=== PATIENT | female | born 1945 | race Caucasian/White ===

== ENCOUNTER 2016-09-15 08:28 | Emergency (ER) | payer MEDICARE, BC ==
--- NOTE | 2016-09-15 08:40 | EDM.PDOC ---
ED HPI GENERAL MEDICAL PROBLEM - General Chief Complaint: Abdominal Pain Stated Complaint: STOMACH ISSUES, [id number] Time Seen by Provider: 09/15/16 08:40 Source of Information: Reports: Patient History Limitations: Reports: No Limitations - History of Present Illness INITIAL COMMENTS - FREE TEXT/NARRATIVE: Yesterday developed crampy abdominal pain. Subsequently had diarrhea. Then last evening developed n/v. This am able to drink fluids. No n/v. Stomach still crampy somewhat. Watery stool today with "streaks of blood". No recent travel, no recent antibiotic use. Did not eat out recently. No one else at home ill. Pt had diverticulitis several years ago, feels similar? Had chills with symptoms yesterday. - Related Data Allergies Allergy/AdvReac Type Severity Reaction Status Date / Time No Known Allergies Allergy Verified 09/15/16 08:42 Home Meds: Home Meds Alendronate [Fosamax] 1 tab PO WEEKLY 09/15/16 [History] Aspirin [Halfprin] 81 mg PO DAILY 09/15/16 [History] Atenolol 50 mg PO DAILY 09/15/16 [History] Benazepril HCl [Lotensin] 40 mg PO DAILY 09/15/16 [History] Pravastatin [Pravachol] 80 mg PO DAILY 09/15/16 [History] cloNIDine [Catapres] 0.1 mg PO BID 09/15/16 [History] Past Medical History - Past Surgical History GI Surgical History: Reports: Other (See Below) (Cholecystectomy, hysterectomy. colonoscopy several years ago as screening measure and reports negative.) Social & Family History - Family History Family Medical History: Noncontributory ED ROS GENERAL - Review of Systems Review Of Systems: See Below Constitutional: Reports: Other (felt chilled with n/v last pm) HEENT: Reports: No Symptoms Respiratory: Reports: No Symptoms Cardiovascular: Reports: No Symptoms Endocrine: Reports: No Symptoms GI/Abdominal: Reports: Diarrhea, Vomiting, Other (crampy abd pain since yesterday. watery diarrhea with "streaks of blood" today.) : Reports: No Symptoms Musculoskeletal: Reports: No Symptoms Skin: Reports: No Symptoms Neurological: Reports: No Symptoms Psychiatric: Reports: No Symptoms Hematologic/Lymphatic: Reports: No Symptoms Immunologic: Reports: No Symptoms ED EXAM, DIZZINESS - Physical Exam Exam: See Below Exam Limited By: No Limitations General Appearance: Alert Ears: Normal External Exam, Normal Canal, Normal TMs Nose: Normal Inspection, Normal Mucosa Throat/Mouth: Normal Inspection, Normal Lips, Normal Teeth, Normal Gums, Normal Oropharynx, Normal Voice, No Airway Compromise Head Exam: Atraumatic, Normocephalic Neck: Normal Inspection, Supple, Non-Tender Respiratory/Chest: No Respiratory Distress, Lungs Clear, Normal Breath Sounds Cardiovascular: Normal Peripheral Pulses, Regular Rate, Rhythm GI/Abdominal: Normal Bowel Sounds, Soft, Non-Tender, No Distention Neurological: Alert, Normal Mood/Affect, CN II-XII Intact Back Exam: Normal Inspection Extremities: Normal Inspection, Normal Range of Motion Psychiatric: Normal Affect, Normal Mood Skin Exam: Warm, Dry, Intact, Normal Color, No Rash Course - Vital Signs Text/Narrative:: Suspect viral illness based on labs with lymphocytes. No elevation wbc and no left shift. Advise symptomatic care. Start with clear liquid diet, adv as tolerated. If persistant discomfort, blood in stool may need ct abd/colonoscopy ? Blood in urine, suspect contaminant? Continue with advise for abd pain and/ or blood per rectum. Last Recorded V/S: Last Vital Signs Temp 36.1 C 09/15/16 08:59 Pulse 57 L 09/15/16 08:59 Resp 18 09/15/16 08:59 BP 185/102 H 09/15/16 08:59 Pulse Ox 99 09/15/16 08:59 - Orders/Labs/Meds Orders: Active Orders 24 hr Category Date Time Status URINALYSIS W/MICROSCOPIC [UA W/MICROSCOPIC] [URIN] Stat Lab 09/15/16 09:05 Results Labs: Laboratory Tests 09/15/16 09/15/16 09/15/16 Range/Units 08:54 08:54 09:05 WBC 8.3 (5.0-10.0) 10^3/uL RBC 4.94 (4.2-5.4) 10^6/uL Hgb 14.0 (12.0-16.0) g/dL Hct 43.0 (37.0-47.0) % MCV 87.0 (80-100) fL MCH 28.3 (27.0-34.0) pg MCHC 32.6 L (33.0-35.0) g/dL Plt Count 244 (150-450) 10^3/uL Neut % (Auto) 68.6 (42.2-75.2) % Lymph % (Auto) 20.0 L (20.5-50.1) % [place] % (Auto) 9.3 H (2-8) % Eos % (Auto) 1.9 (1.0-3.0) % Baso % (Auto) 0.2 (0.0-1.0) % Sodium 136 (135-145) mmol/L Potassium 3.9 (3.6-5.0) mmol/L Chloride 103 (101-111) mmol/L Carbon Dioxide 25.0 (21.0-31.0) mmol/L Anion Gap 11.9 BUN 26 H (7-18) mg/dL Creatinine 1.1 (0.6-1.3) mg/dL Est Cr Clr Drug Dosing 35.91 mL/min Estimated GFR (MDRD) 49 BUN/Creatinine Ratio 23.63 Glucose 110 H (74-105) mg/dL Calcium 8.7 (8.4-10.2) mg/dl Total Bilirubin 1.0 (0.2-1.0) mg/dL AST 28 (10-42) IU/L ALT 21 (10-60) IU/L Alkaline Phosphatase 41 L (42-121) IU/L Total Protein 7.4 (6.7-8.2) g/dl Albumin 4.2 (3.2-5.5) g/dl Globulin 3.2 Albumin/Globulin Ratio 1.31 Amylase 79 (28-100) U/L Lipase 58 H (22-51) U/L Urine Color Yellow (YELLOW) Urine Appearance Clear (CLEAR) Urine pH 7.0 (5.0-9.0) Ur Specific [place] 1.015 (1.005-1.030) Urine Protein 100 H (NEGATIVE) Urine Glucose (UA) Negative (NEGATIVE) Urine Ketones Negative (NEGATIVE) Urine Occult Blood Moderate H (NEGATIVE) Urine Nitrite Negative (NEGATIVE) Urine Bilirubin Small H (NEGATIVE) Urine Urobilinogen 0.2 (0.2-1.0) mg/dL Ur Leukocyte Esterase Negative (NEGATIVE) Meds: Medications Discontinued Medications Generic Name Dose Route Start Last Admin Trade Name Freq PRN Reason Stop Dose Admin Sodium Chloride 1,000 mls @ 999 mls/hr 09/15/16 08:48 09/15/16 09:15 Normal Saline IV 09/15/16 09:48 999 mls/hr .BOLUS ONE Administration Departure - Departure Time of Disposition: 10:12 Disposition: Home, Self-Care 01 Condition: good Clinical Impression: Abdominal pain, Diarrhea, Nausea & vomiting, Gastroenteritis, Gastroenteritis - Discharge Information Instructions: Viral Gastroenteritis, Adult, [id number] Additional Instructions: Suspect viral etiology. Start with clear liquid diet, advance as tolerated. If persistant abdominal pain you may need further diagnostics such as CT of the abdomen. Return to the ER if progressive/persistant abdominal pain either return to the ER or see your provider. If persistant blood per rectum you may need a colonoscopy. Discuss with your provider if persists. - My Orders Last 24 Hours: My Active Orders 09/15/16 09:05 URINALYSIS W/MICROSCOPIC [UA W/MICROSCOPIC] [URIN] Stat - Assessment/Plan Last 24 Hours: My Active Orders 09/15/16 09:05 URINALYSIS W/MICROSCOPIC [UA W/MICROSCOPIC] [URIN] Stat
[2016-09-15] MEDS ORDERED: Sodium Chloride 0.9% 1,000 ML IV ONE (08:48)
[2016-09-15 09:03] VITALS: BP 185/102
== END 2016-09-15 10:18 | disposition home or self-care (01) ==
LOC: DL.ED 08:28
DX: K52.9 Noninfective gastroenteritis and colitis, unspecified (principal); Z79.82 Long term (current) use of aspirin; Z79.899 Other long term (current) drug therapy; Z90.49 Acquired absence of other specified parts of digestive tract
CPT/HCPCS: 36415; 80053; 81001; 82150; 83690; 85025; 96360; 99284; J7030; 99283

== ENCOUNTER 2017-09-02 08:17 | Day surgery (SDC) | payer MEDICARE, BC ==
[~2017-09-02 08:17] MED LIST: Midazolam 1 MG/ML 2 ML SDV ONE; fentaNYL 100 MCG/2 ML SDV ONE
[2017-09-02] MEDS ORDERED: fentaNYL 100 MCG/2 ML SDV IV ONE ×2 (08:18→09:13)
[2017-09-02] MEDS ORDERED: Midazolam 1 MG/ML 2 ML SDV IV ONE ×3 (08:18→09:14)
[2017-09-02] MEDS ORDERED: Lactated Ringers 1,000 ML IV SCH (09:00)
[2017-09-02 11:38] VITALS: BP 152/82
--- NOTE | 2017-09-02 16:08 | OR ---
DATE: 09/02/2017 PREOPERATIVE DIAGNOSIS: Screening colonoscopy. POSTOPERATIVE DIAGNOSIS: Screening colonoscopy. PROCEDURE: Total colonoscopy. ANESTHESIA: Conscious sedation with IV Versed and fentanyl. SPECIMEN: None. OPERATIVE FINDINGS: Moderate sigmoid diverticulosis, otherwise normal. RECOMMENDATION: This patient is 72 years old, would only recommend further colonoscopy for symptoms and none for screening. INDICATION FOR PROCEDURE: This 72-year-old female has had a prior colonoscopy, but greater than 10 years ago. She is essentially here for screening. PROCEDURE: After adequate preparation, a colonoscope was inserted into the rectum. This was easily passed all the way to the cecum. Confirmation of the cecum was made by visualization of the ileocecal valve. The light shining through the right lower quadrant and by palpation. The bowel prep was very good. On withdrawal of the scope, a good examination of the colon was accomplished. The only abnormality noted was moderate sigmoid diverticulosis. The anal and rectal examination were normal. Air was suctioned from the colon, and the scope removed. [facility] /[id number]
== END 2017-09-02 11:05 | disposition home or self-care (01) ==
LOC: DL.ENDO 08:17
PROVIDERS: ATTEND Surgery
DX: Z12.11 Encounter for screening for malignant neoplasm of colon (principal); K57.30 Diverticulosis of large intestine without perforation or abscess without bleeding; I10 Essential (primary) hypertension; F41.9 Anxiety disorder, unspecified; Z79.82 Long term (current) use of aspirin; Z79.83 Long term (current) use of bisphosphonates; Z79.899 Other long term (current) drug therapy
CPT/HCPCS: G0121; J2250; J3010; J7120

== ENCOUNTER 2018-08-07 13:39 | Emergency (ER) | payer MEDICARE, BC ==
[2018-08-07 13:47] VITALS: BP 138/86
--- NOTE | 2018-08-07 14:06 | EDM.PDOC ---
ED HPI GENERAL MEDICAL PROBLEM - General Chief Complaint: General Stated Complaint: NECK SPASMS INTO JAW Time Seen by Provider: 08/07/18 13:55 Source of Information: Reports: Patient History Limitations: Reports: No Limitations - History of Present Illness INITIAL COMMENTS - FREE TEXT/NARRATIVE: This 73 yo female patient reports to the ED due to left sided shoulder and neck muscle spasms. The patient reports her symptoms started at about 1115 this morning. The patient reports she has a history of muscle spasms in different areas, but normally drinks some warm water and they go away. The patient reports her symptoms did not go away until she was on her way here to the ED. The patient reports she has been seen previously for these symptoms and has been low in salt as well as potassium in the past. Onset: Today Onset Date: 08/07/18 Onset Time: 11:15 Duration: Resolved Prior to Arrival Location: Reports: Neck, Upper Extremity, Left Quality: Reports: Ache Severity: Mild Improves with: Reports: None Worsens with: Reports: None Context: Reports: Other Associated Symptoms: Reports: No Other Symptoms - Related Data Allergies Allergy/AdvReac Type Severity Reaction Status Date / Time tramadol Allergy Itching Verified 08/07/18 13:47 Home Meds: Home Meds Alendronate [Fosamax] 70 mg PO WEEKLY 09/15/16 [History] Aspirin [Halfprin] 81 mg PO DAILY 09/15/16 [History] Atenolol 50 mg PO BID 09/15/16 [History] Benazepril HCl [Lotensin] 40 mg PO DAILY 09/15/16 [History] Pravastatin [Pravachol] 40 mg PO DAILY 09/15/16 [History] cloNIDine [Catapres] 0.1 mg PO TID 09/15/16 [History] Calcium Carbonate/Vitamin D3 [Caltrate 600 Plus D3 Tablet] 1 each PO DAILY 08/30 [History] Past Medical History HEENT History: Reports: Cataract, Other (See Below) Other HEENT History: left eye cataract. 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 Cardiovascular History: Reports: High Cholesterol, Hypertension, Other (See Below) Other Cardiovascular History: States mild heart attack couple years back Respiratory History: Reports: None Gastrointestinal History: Reports: Diverticulosis Other Gastrointestinal History: diverticulitis Genitourinary History: Reports: Renal Disease Other Genitourinary History: Has ultrasound on September 20 to examine kidneys, was told to discontinue Ibuprophen IMPORT/EXPORT CLERK History: Reports: None Musculoskeletal History: Reports: Arthritis, Osteoarthritis Other Musculoskeletal History: osteopenia Neurological History: Reports: None Psychiatric History: Reports: Depression Endocrine/Metabolic History: Reports: Vitamin D Deficiency Other Endocrine/Metabolic History: takes caltrate Hematologic History: Reports: None Immunologic History: Reports: None Oncologic (Cancer) History: Reports: None Dermatologic History: Reports: None - Infectious Disease History Infectious Disease History: Reports: Measles - Past Surgical History Head Surgeries/Procedures: Reports: None HEENT Surgical History: Reports: None Other HEENT Surgeries/Procedures: S/P PAROTID TUMOR EXCISION Cardiovascular Surgical History: Reports: None Other Cardiovascular Surgeries/Procedures: S/P NECK PAROTID TUMOR EXCISION GI Surgical History: Reports: Colonoscopy Female Surgical History: Reports: Hysterectomy, Other (See Below) Other Female Surgeries/Procedures: complete hysterectomy 1982 Musculoskeletal Surgical History: Reports: None Social & Family History - Family History Family Medical History: Noncontributory Cardiac: Reports: CAD, High Cholesterol, Hypertension Respiratory: Reports: Asthma Neurological: Reports: CVA Oncologic: Reports: Breast - Tobacco Use Smoking Status *Q: Never Smoker Second Hand Smoke Exposure: No - Caffeine Use Caffeine Use: Reports: Tea Other Caffeine Use: 4-5 cups of green tea daily - Recreational Drug Use Recreational Drug Use: No ED ROS GENERAL - Review of Systems Review Of Systems: ROS reveals no pertinent complaints other than HPI. ED EXAM, GENERAL - Physical Exam Exam: See Below Exam Limited By: No Limitations General Appearance: Alert, WD/WN, Mild Distress Eye Exam: Bilateral Eye: EOMI, Normal Inspection, PERRL Ears: Normal External Exam, Normal Canal, Hearing Grossly Normal, Normal TMs Nose: Normal Inspection, Normal Mucosa, No Blood Throat/Mouth: Normal Inspection, Normal Lips, Normal Teeth, Normal Gums, Normal Oropharynx, Normal Voice, No Airway Compromise Head: Atraumatic, Normocephalic Neck: Normal Inspection, Supple, Non-Tender, Full Range of Motion Respiratory/Chest: No Respiratory Distress, Lungs Clear, Normal Breath Sounds, No Accessory Muscle Use, Chest Non-Tender Cardiovascular: Normal Peripheral Pulses, Regular Rate, Rhythm, No Edema, No Gallop, No JVD, No Murmur, No Rub GI/Abdominal: Normal Bowel Sounds, Soft, Non-Tender, No Organomegaly, No Distention, No Abnormal Bruit, No Mass (Female) Exam: Deferred Rectal (Female) Exam: Deferred Back Exam: Normal Inspection, Full Range of Motion, NT Extremities: Normal Inspection, Normal Range of Motion, Non-Tender, Normal Capillary Refill, No Pedal Edema Neurological: Alert, Oriented, CN II-XII Intact, Normal Cognition, Normal Gait, Normal Reflexes, No Motor/Sensory Deficits Psychiatric: Normal Affect, Normal Mood Skin Exam: Warm, Dry, Intact, Normal Color, No Rash Lymphatic: No Adenopathy Course - Vital Signs Last Recorded V/S: Last Vital Signs Temp 36.9 C 08/07/18 13:44 Pulse 66 08/07/18 13:44 Resp 18 08/07/18 13:44 BP 138/86 08/07/18 13:44 Pulse Ox 97 08/07/18 13:44 - Orders/Labs/Meds Labs: Laboratory Tests 08/07/18 08/07/18 Range/Units 14:07 14:07 WBC 7.5 (5.0-10.0) 10^3/uL RBC 4.33 (4.2-5.4) 10^6/uL Hgb 12.9 (12.0-16.0) g/dL Hct 37.5 (37.0-47.0) % MCV 86.6 (80-100) fL MCH 29.8 (27.0-34.0) pg MCHC 34.4 (33.0-35.0) g/dL Plt Count 258 (150-450) 10^3/uL Neut % (Auto) 54.3 (42.2-75.2) % Lymph % (Auto) 32.5 (20.5-50.1) % [place] % (Auto) 10.4 H (2-8) % Eos % (Auto) 2.5 (1.0-3.0) % Baso % (Auto) 0.3 (0.0-1.0) % Add Manual Diff Yes Neutrophils % (Manual) 44 (42-75) % Lymphocytes % (Manual) 40 (20-50) % Monocytes % (Manual) 8 (2-8) % Eosinophils % (Manual) 2 (1-3) % Basophils % (Manual) 2 Metamyelocytes % 1 Myelocytes % 3 Sodium 124 L D (135-145) mmol/L Potassium 3.5 L (3.6-5.0) mmol/L Chloride 89 L D (101-111) mmol/L Carbon Dioxide 23.0 (21.0-31.0) mmol/L Anion Gap 15.5 BUN 19 H (7-18) mg/dL Creatinine 1.0 (0.6-1.3) mg/dL Est Cr Clr Drug Dosing 38.37 mL/min Estimated GFR (MDRD) 55 BUN/Creatinine Ratio 19.00 Glucose 95 (74-105) mg/dL Calcium 8.8 (8.4-10.2) mg/dl Total Bilirubin 0.8 (0.2-1.0) mg/dL AST 34 (10-42) IU/L ALT 27 (10-60) IU/L Alkaline Phosphatase 47 (42-121) IU/L Total Protein 7.0 (6.7-8.2) g/dl Albumin 3.7 (3.2-5.5) g/dl Globulin 3.3 Albumin/Globulin Ratio 1.12 Departure - Departure Time of Disposition: 14:42 Disposition: Home, Self-Care 01 Condition: Fair Clinical Impression: Muscle spasm - Discharge Information *PRESCRIPTION DRUG MONITORING PROGRAM REVIEWED*: Not Applicable *COPY OF PRESCRIPTION DRUG MONITORING REPORT IN PATIENT NELA: Not Applicable Instructions: Muscle Cramps and Spasms Forms: ED Department Discharge Care Plan Goals: The patient was advised of the examination and lab results during the visit. The patient was encouraged to drink a small sports drink when she feels her muscle spasms start. The patient was discharged with a script for Flexeril (5 mg ) #20 to take 1 by mouth every 8 hours as needed for muscle spasms. If the patient has any additional symptoms or concerns, the patient should either return to the emergency department or visit her primary care facility.
[2018-08-07 14:33] LABS: ANION GAP 15.5
== END 2018-08-07 14:52 | disposition home or self-care (01) ==
LOC: DL.ED 13:39
DX: M62.838 Other muscle spasm (principal); E78.00 Pure hypercholesterolemia, unspecified; I10 Essential (primary) hypertension; F32.9 Major depressive disorder, single episode, unspecified; Z88.5 Allergy status to narcotic agent; Z79.899 Other long term (current) drug therapy; Z79.82 Long term (current) use of aspirin
CPT/HCPCS: 36415; 80053; 85025; 99283

== ENCOUNTER 2020-11-07 04:27 | Inpatient (IN) | payer MEDICARE, BC ==
[2020-11-07] MEDS ORDERED: Ondansetron 4 MG/2 ML SDV IVPUSH ONE ×3 (04:39→17:54)
[2020-11-07 05:23] LABS: ANION GAP 19.5 mEq/L (7-13)
[2020-11-07] MEDS ORDERED: Metoclopramide 10 MG/2 ML SDV IVPUSH ONE (05:49)
--- NOTE | 2020-11-07 05:49 | EDM.PDOC ---
<Meche Mcdonald - Last Filed: 11/07/20 12:39> ED HPI GENERAL MEDICAL PROBLEM - General Chief Complaint: Gastrointestinal Problem Stated Complaint: AMBULANCE Time Seen by Provider: 11/07/20 05:06 - Related Data Allergies Allergy/AdvReac Type Severity Reaction Status Date / Time chlorthalidone AdvReac Lethargy Verified 11/07/20 15:40 hydralazine AdvReac Lightheaded Verified 11/07/20 15:40 ness minoxidil AdvReac Edema Verified 11/07/20 15:40 tramadol AdvReac Itching Verified 11/07/20 15:40 Home Meds: Home Meds Alendronate [Fosamax] 70 mg PO .Saturday09/15/16 [History] Aspirin [Halfprin] 81 mg PO DAILY 09/15/16 [History] Pravastatin [Pravachol] 40 mg PO DAILY 09/15/16 [History] atenoloL [Atenolol] 100 mg PO BID 09/15/16 [History] cloNIDine [Catapres] 0.3 mg PO TID 09/15/16 [History] Calcium Carbonate/Vitamin D3 [Caltrate 600 Plus D3 Tablet] 1 each PO DAILY 08/30/17 [History] Calcitriol 0.5 mg PO DAILY 11/07/20 [History] Gabapentin [Neurontin] 100 mg PO BID 11/07/20 [History] amLODIPine [Norvasc] 10 mg PO DAILY 11/07/20 [History] Isosorbide Mononitrate [Imdur] 120 mg PO ACBREAKFAST 30 Days #30 tab.er 11/09/20 [Rx] Ondansetron [Zofran ODT] 4 mg PO Q4H PRN 15 Days #15 tab.dis 11/09/20 [Rx] metroNIDAZOLE [Flagyl] 500 mg PO Q6H 7 Days #28 tab 11/09/20 [Rx] ED ROS GENERAL - Review of Systems Review Of Systems: Comprehensive ROS is negative, except as noted in HPI. ED EXAM, GI/ABD - Physical Exam Exam: See Below Course - Radiology Interpretation Free Text/Narrative:: [facility] [place] [facility] Final Radiology Report Call: [phone] assistance Online chat: [email or web address] Medical Name: ALEE FALCON Age: 75Years F Date: 11/07/2020 SSN: -- : [id number] Study: CT ABDOMEN PELVIS WO CONT Requesting Physician: ELDA ZHAO Images: [phone] Addl Studies: Provided Clinical History: abdominal pain Contrast: Without Contrast Medium: Contrast Amount: Contrast Method: Page 1 of 2 PROCEDURE INFORMATION: Exam: CT Abdomen And Pelvis Without Contrast Exam date and time: 11/07/2020 6:30 AM Age: 75 years old Clinical indication: Vomiting and other: Wbc 16,800; Additional info: Abdominal pain TECHNIQUE: Imaging protocol: Computed tomography of the abdomen and pelvis without contrast. Radiation optimization: All CT scans at this facility use at least one of these dose optimization techniques: automated exposure control; mA and/or kV adjustment per patient size (includes targeted exams where dose is matched to clinical indication); or iterative reconstruction. COMPARISON: No relevant prior exams. FINDINGS: Mediastinal space: Moderate sized hiatal hernia. Liver: Normal. No mass. Gallbladder and bile ducts: Absent gallbladder. Normal bile ducts. Pancreas: Normal. No ductal dilation. Spleen: Normal. No splenomegaly. Adrenal glands: Normal. No mass. Kidneys and ureters: Normal. No hydronephrosis. Stomach and bowel: Diffuse mucosal thickening of the colon. This finding extends from the hepatic flexure to the rectum. There are diverticula of the sigmoid. No associated inflammatory changes. The small intestine is unremarkable. No inflammatory change. No obstruction. Appendix: No evidence for appendicitis. Normal diameter. No inflammation. Intraperitoneal space: Unremarkable. No free air. No significant fluid collection. Vasculature: Unremarkable. No abdominal aortic aneurysm. Lymph nodes: Unremarkable. No enlarged lymph nodes. Urinary bladder: Unremarkable as visualized. Reproductive: Unremarkable as visualized. Bones/joints: Moderately severe degenerative changes of the right hip joint. [id number] degenerative changes of the left hip joint. No fractures. Soft tissues: Unremarkable. IMPRESSION: 1. Diffuse inflammatory changes of the colon. Findings may represent infectious colitis or inflammatory bowel disease. 2. Colonic diverticular disease without diverticulitis. Thank you for allowing us to participate in the care of your patient. Dictated and Authenticated by: Iam Richard MD 11/07/2020 7:39 AM Central Time ([place] & [place]) - Re-Assessments/Exams Free Text/Narrative Re-Assessment/Exam: 11/07/20 Care of patient assumed by sba underwriter at 0630 from [facility] [place] Patient's symptoms intractable to multiple doses of antiemetics, Bentyl and fluid replacement. CT abdomen/pelvis reveals diffuse inflammatory changes within the colon; patient attests to a history of IBS with more constipation than diarrhea. Case discussed with Dr. Perez who accepted patient for inpatient admission. Findings of examination, lab work, imaging, as well as conversation with Dr. Perez reviewed with patient. Patient verbalized understanding and agreement with the plan of care. Departure - Departure Time of Disposition: 09:51 Disposition: Admitted As Inpatient 67 Condition: Good Clinical Impression: Colitis, Hyponatremia Nausea and vomiting Qualifiers: Vomiting type: bilious vomiting Qualified Code(s): R11.14 - Bilious vomiting Diarrhea Qualifiers: Diarrhea type: presumed infectious Qualified Code(s): R19.7 - Diarrhea, unspecified - Discharge Information <Elda Zhao - Last Filed: 11/09/20 10:27> ED HPI GENERAL MEDICAL PROBLEM - General Source of Information: Reports: Patient, Family, RN History Limitations: Reports: No Limitations - History of Present Illness INITIAL COMMENTS - FREE TEXT/NARRATIVE: 75 year old female who presents to the clinic with complaints of nausea, vomiting, diarrhea and heartburn for over a day. [place] the night before symptoms began. She reports symptoms began after she drank beer. She has tried tums with no relief. Past Medical History HEENT History: Reports: Cataract, Other (See Below) Other HEENT History: left eye cataract. 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 Cardiovascular History: Reports: High Cholesterol, Hypertension, Other (See Below) Other Cardiovascular History: States mild heart attack couple years back Respiratory History: Reports: None Gastrointestinal History: Reports: Diverticulosis Other Gastrointestinal History: diverticulitis Genitourinary History: Reports: Renal Disease Other Genitourinary History: Has ultrasound on September 20 to examine kidneys, was told to discontinue Ibuprophen TILE PROFESSIONAL History: Reports: None Musculoskeletal History: Reports: Arthritis, Osteoarthritis Other Musculoskeletal History: osteopenia Neurological History: Reports: None Psychiatric History: Reports: Depression Endocrine/Metabolic History: Reports: Vitamin D Deficiency Other Endocrine/Metabolic History: takes caltrate Hematologic History: Reports: None Immunologic History: Reports: None Oncologic (Cancer) History: Reports: None Dermatologic History: Reports: None - Infectious Disease History Infectious Disease History: Reports: Measles - Past Surgical History Head Surgeries/Procedures: Reports: None HEENT Surgical History: Reports: None Other HEENT Surgeries/Procedures: S/P PAROTID TUMOR EXCISION Cardiovascular Surgical History: Reports: None Other Cardiovascular Surgeries/Procedures: S/P NECK PAROTID TUMOR EXCISION GI Surgical History: Reports: Colonoscopy Female Surgical History: Reports: Hysterectomy, Other (See Below) Other Female Surgeries/Procedures: complete hysterectomy 1982 Musculoskeletal Surgical History: Reports: None Social & Family History - Family History Family Medical History: No Pertinent Family History Cardiac: Reports: CAD, High Cholesterol, Hypertension Respiratory: Reports: Asthma Neurological: Reports: CVA Oncologic: Reports: Breast - Tobacco Use Tobacco Use Status *Q: Never Tobacco User - Caffeine Use Caffeine Use: Reports: Coffee, Tea Other Caffeine Use: 4-5 cups of green tea daily - Recreational Drug Use Recreational Drug Use: No ED ROS GENERAL - Review of Systems Review Of Systems: See Below ED EXAM, GI/ABD - Physical Exam Exam Limited By: No Limitations General Appearance: Alert, Moderate Distress Ears: Normal External Exam, Hearing Grossly Normal Throat/Mouth: No Airway Compromise Neck: Normal Inspection, Supple Respiratory/Chest: No Respiratory Distress, Lungs Clear Cardiovascular: Normal Peripheral Pulses, Regular Rate, Rhythm GI/Abdominal Exam: Soft, Non-Tender (Female) Exam: Deferred Rectal (Female) Exam: Deferred Extremities: Pedal Edema (1 + pitting to BLE) Neurological: Alert, Oriented Psychiatric: Anxious Skin Exam: Warm, Intact #1 Interpretation EKG Date: 11/07/20 Time: 04:54 Rhythm: Other (SR with short [place] interval) QRS: LBBB Course - Vital Signs Last Recorded V/S: Last Vital Signs Temp 96.4 F L 11/09/20 07:40 Pulse 80 11/09/20 09:02 Resp 22 H 11/09/20 07:40 BP 162/72 H 11/09/20 09:02 Pulse Ox 94 L 11/09/20 07:40 - Orders/Labs/Meds Orders: Medication Orders Acetaminophen (Acetaminophen 325 Mg Tab) 650 mg PO Q4H PRN PRN Reason: Pain (Mild 1-3)/fever Amlodipine Besylate (Amlodipine 5 Mg Tab) 10 mg PO DAILY ERICA Last Admin: 11/09/20 09:02 Dose: 10 mg Documented by: Admin: 11/08/20 09:07 Dose: 10 mg Documented by: KANWAL Aspirin (Aspirin 81 Mg Tab.Ec) 81 mg PO DAILY [facility] Last Admin: 11/09/20 09:02 Dose: 81 mg Documented by: Admin: 11/08/20 09:07 Dose: 81 mg Documented by: KANWAL Atenolol (Atenolol 50 Mg Tab) 100 mg PO BID [facility] Last Admin: 11/09/20 09:02 Dose: 100 mg Documented by: Admin: 11/08/20 20:08 Dose: 100 mg Documented by: Admin: 11/08/20 09:07 Dose: 100 mg Documented by: Admin: 11/07/20 22:59 Dose: Not Given Documented by: EVAN Calcitriol (Calcitriol 0.25 Mcg Cap) 0.5 mcg PO DAILY [facility] Admin: 11/09/20 09:01 Dose: 0.5 mcg Documented by: Admin: 11/08/20 09:06 Dose: 0.5 mcg Documented by: KANWAL Clonidine HCl (Clonidine 0.1 Mg Tab) 0.3 mg PO TID [facility] Admin: 11/09/20 09:01 Dose: 0.3 mg Documented by: Admin: 11/08/20 20:07 Dose: 0.3 mg Documented by: Admin: 11/08/20 15:22 Dose: 0.3 mg Documented by: Admin: 11/08/20 09:08 Dose: 0.3 mg Documented by: Admin: 11/07/20 22:58 Dose: Not Given Documented by: EVAN Gabapentin (Gabapentin 100 Mg Cap) 100 mg PO BID [facility] Last Admin: 11/09/20 09:01 Dose: 100 mg Documented by: Admin: 11/08/20 20:07 Dose: 100 mg Documented by: Admin: 11/08/20 09:06 Dose: 100 mg Documented by: Admin: 11/07/20 22:58 Dose: Not Given Documented by: EVAN Sodium Chloride (Normal Saline) 1,000 mls @ 75 mls/hr IV ASDIRECTED [facility] Last Admin: 11/08/20 22:37 Dose: 75 mls/hr Documented by: Infusion: 11/08/20 22:33 Dose: 75 mls/hr Documented by: Admin: 11/08/20 05:29 Dose: 75 mls/hr Documented by: Infusion: 11/08/20 00:50 Dose: 75 mls/hr Documented by: Admin: 11/07/20 11:30 Dose: 75 mls/hr Documented by: KANWAL Metronidazole 500 mg/ Premix 100 mls @ 100 mls/hr IV Q6HR [facility] Last Infusion: 11/09/20 06:22 Dose: 100 mls/hr Documented by: Admin: 11/09/20 05:03 Dose: 100 mls/hr Documented by: Infusion: 11/09/20 00:39 Dose: 100 mls/hr Documented by: Admin: 11/08/20 23:29 Dose: 100 mls/hr Documented by: Infusion: 11/08/20 18:45 Dose: 100 mls/hr Documented by: Admin: 11/08/20 17:45 Dose: 100 mls/hr Documented by: Infusion: 11/08/20 13:11 Dose: 100 mls/hr Documented by: [id number] Admin: 11/08/20 12:11 Dose: 100 mls/hr Documented by: [id number] Infusion: 11/08/20 06:30 Dose: 100 mls/hr Documented by: Admin: 11/08/20 05:28 Dose: 100 mls/hr Documented by: Infusion: 11/08/20 00:57 Dose: 100 mls/hr Documented by: Admin: 11/07/20 23:52 Dose: 100 mls/hr Documented by: Infusion: 11/07/20 19:14 Dose: 100 mls/hr Documented by: Admin: 11/07/20 18:14 Dose: 100 mls/hr Documented by: [id number] Infusion: 11/07/20 12:30 Dose: 100 mls/hr Documented by: [id number] Admin: 11/07/20 11:30 Dose: 100 mls/hr Documented by: KANWAL Isosorbide Mononitrate (Isosorbide Mononitrate 60 Mg Tab.Er) 120 mg PO ACBREAKFAST [facility] Last Admin: 11/09/20 05:05 Dose: 120 mg Documented by: SPIKE Metoclopramide HCl (Metoclopramide 10 Mg/2 Ml Sdv) 10 mg IVPUSH Q6H PRN PRN Reason: Nausea/Vomiting Last Admin: 11/07/20 23:46 Dose: 10 mg Documented by: Admin: 11/07/20 16:33 Dose: 10 mg Documented by: KANWAL Non-Formulary Medication (Alendronate [Fosamax]) 70 mg PO .SATURDAY [facility] Ondansetron HCl (Ondansetron 4 Mg/2 Ml Sdv) 4 mg IVPUSH Q4H PRN PRN Reason: Nausea/Vomiting Last Admin: 11/08/20 05:27 Dose: 4 mg Documented by: Admin: 11/07/20 11:16 Dose: 4 mg Documented by: KANWAL Pravastatin Sodium (Pravastatin 20 Mg Tab) 40 mg PO BEDTIME [facility] Last Admin: 11/08/20 20:08 Dose: 40 mg Documented by: Admin: 11/07/20 22:59 Dose: Not Given Documented by: EVAN Promethazine HCl (Promethazine 25 Mg/Ml Sdv) 25 mg IM Q4H PRN PRN Reason: nausea and vomitting Last Admin: 11/07/20 13:15 Dose: 25 mg Documented by: KANWAL Sodium Chloride (Sodium Chloride 0.9% 10 Ml Syringe) 10 ml FLUSH ASDIRECTED PRN PRN Reason: Keep Vein Open Labs: Laboratory Tests 11/07/20 11/07/20 11/07/20 Range/Units 04:53 04:53 04:53 WBC 16.8 H (5.0-10.0) 10^3/uL RBC 5.38 (4.2-5.4) 10^6/uL Hgb 15.3 D (12.0-16.0) g/dL Hct 44.7 (37.0-47.0) % MCV 83.1 D (80-100) fL MCH 28.4 (27.0-34.0) pg MCHC 34.2 (33.0-35.0) g/dL Plt Count 354 D (150-450) 10^3/uL Neut % (Auto) 75.4 H (42.2-75.2) % Lymph % (Auto) 14.7 L (20.5-50.1) % Bl[place] % (Auto) 9.3 H (2-8) % Eos % (Auto) 0.4 L (1.0-3.0) % Baso % (Auto) 0.2 (0.0-1.0) % Add Manual Diff Yes Neutrophils % (Manual) 81 H (42-75) % Band Neutrophils % 1 % Lymphocytes % (Manual) 12 L (20-50) % Monocytes % (Manual) 6 (2-8) % Sodium 132 L (136-145) mmol/L Potassium 3.5 (3.5-5.1) mmol/L Chloride 92 L (98-107) mmol/L Carbon Dioxide 24 (21-32) mmol/L Anion Gap 19.5 H (7-13) mEq/L BUN 28 H (7-18) mg/dL Creatinine 1.40 H (0.55-1.02) mg/dL Est Cr Clr Drug Dosing 26.60 mL/min Estimated GFR (MDRD) 37 BUN/Creatinine Ratio 20.0 (No establ ref range) Glucose 139 H (70-99) mg/dL Calcium 8.9 (8.5-10.1) mg/dL Magnesium 1.7 L (1.8-2.4) mg/dL Total Bilirubin 0.7 (0.2-1.0) mg/dL AST 26 (15-37) U/L ALT 35 (14-59) U/L Alkaline Phosphatase 65 (46-116) U/L Troponin I High Sens 9 (<=51) pg/mL B-Natriuretic Peptide 63 (0-100) pg/ml Total Protein 8.0 (6.4-8.2) g/dL Albumin 4.0 (3.4-5.0) g/dL Globulin 4.0 Albumin/Globulin Ratio 1.0 Amylase 98 (25-115) U/L Lipase 272 (73-393) U/L Urine Color (YELLOW) Urine Appearance (CLEAR) Urine pH (5.0-9.0) Ur Specific [place] (1.005-1.030) Urine Protein (NEGATIVE) Urine Glucose (UA) (NEGATIVE) Urine Ketones (NEGATIVE) Urine Occult Blood (NEGATIVE) Urine Nitrite (NEGATIVE) Urine Bilirubin (NEGATIVE) Urine Urobilinogen (0.2-1.0) mg/dL Ur Leukocyte Esterase (NEGATIVE) Urine RBC /HPF Urine WBC (0-5/HPF) /HPF Ur Epithelial Cells (NOT SEEN) /HPF Amorphous Sediment (NOT SEEN) /HPF Urine Bacteria (0-FEW/HPF) /HPF Urine Mucus (NOT SEEN) /LPF 11/07/20 Range/Units 07:08 WBC (5.0-10.0) 10^3/uL RBC (4.2-5.4) 10^6/uL Hgb (12.0-16.0) g/dL Hct (37.0-47.0) % MCV (80-100) fL MCH (27.0-34.0) pg MCHC (33.0-35.0) g/dL Plt Count (150-450) 10^3/uL Neut % (Auto) (42.2-75.2) % Lymph % (Auto) (20.5-50.1) % Blount % (Auto) (2-8) % Eos % (Auto) (1.0-3.0) % Baso % (Auto) (0.0-1.0) % Add Manual Diff Neutrophils % (Manual) (42-75) % Band Neutrophils % % Lymphocytes % (Manual) (20-50) % Monocytes % (Manual) (2-8) % Sodium (136-145) mmol/L Potassium (3.5-5.1) mmol/L Chloride (98-107) mmol/L Carbon Dioxide (21-32) mmol/L Anion Gap (7-13) mEq/L BUN (7-18) mg/dL Creatinine (0.55-1.02) mg/dL Est Cr Clr Drug Dosing mL/min Estimated GFR (MDRD) BUN/Creatinine Ratio (No establ ref range) Glucose (70-99) mg/dL Calcium (8.5-10.1) mg/dL Magnesium (1.8-2.4) mg/dL Total Bilirubin (0.2-1.0) mg/dL AST (15-37) U/L ALT (14-59) U/L Alkaline Phosphatase (46-116) U/L Troponin I High Sens (<=51) pg/mL B-Natriuretic Peptide (0-100) pg/ml Total Protein (6.4-8.2) g/dL Albumin (3.4-5.0) g/dL Globulin Albumin/Globulin Ratio Amylase (25-115) U/L Lipase (73-393) U/L Urine Color Yellow (YELLOW) Urine Appearance Clear (CLEAR) Urine pH 6.0 (5.0-9.0) Ur Specific [place] >= 1.030 (1.005-1.030) Urine Protein 100 H (NEGATIVE) Urine Glucose (UA) Negative (NEGATIVE) Urine Ketones Negative (NEGATIVE) Urine Occult Blood Moderate H (NEGATIVE) Urine Nitrite Negative (NEGATIVE) Urine Bilirubin Negative (NEGATIVE) Urine Urobilinogen 0.2 (0.2-1.0) mg/dL Ur Leukocyte Esterase Negative (NEGATIVE) Urine RBC 10-20 H /HPF Urine WBC 0-5 (0-5/HPF) /HPF Ur Epithelial Cells Few (NOT SEEN) /HPF Amorphous Sediment Few (NOT SEEN) /HPF Urine Bacteria Few (0-FEW/HPF) /HPF Urine Mucus Few H (NOT SEEN) /LPF Meds: Medications Generic Name Dose Route Start Last Admin Trade Name Freq PRN Reason Stop Dose Admin Acetaminophen 650 mg 11/07/20 10:59 Acetaminophen 325 Mg Tab PO Q4H PRN Pain (Mild 1-3)/fever Amlodipine Besylate 10 mg 11/08/20 09:00 11/09/20 09:02 Amlodipine 5 Mg Tab PO 10 mg DAILY ERICA Administration Aspirin 81 mg 11/08/20 09:00 11/09/20 09:02 Aspirin 81 Mg Tab.Ec PO 81 mg DAILY ERICA Administration Atenolol 100 mg 11/07/20 21:00 11/09/20 09:02 Atenolol 50 Mg Tab PO 100 mg BID ERICA Administration Calcitriol 0.5 mcg 11/08/20 09:00 11/09/20 09:01 Calcitriol 0.25 Mcg Cap PO 0.5 mcg DAILY ERICA Administration Clonidine HCl 0.3 mg 11/07/20 21:00 11/09/20 09:01 Clonidine 0.1 Mg Tab PO 0.3 mg TID ERICA Administration Gabapentin 100 mg 11/07/20 21:00 11/09/20 09:01 Gabapentin 100 Mg Cap PO 100 mg BID ERICA Administration Sodium Chloride 1,000 mls @ 75 mls/hr 11/07/20 11:00 11/08/20 22:37 Normal Saline IV 75 mls/hr ASDIRECTED ERICA Administration Metronidazole 500 mg/ Premix 100 mls @ 100 mls/hr 11/07/20 12:00 11/09/20 06:22 IV Infused Q6HR ERICA Infusion Isosorbide Mononitrate 120 mg 11/09/20 06:00 11/09/20 05:05 Isosorbide Mononitrate 60 Mg Tab.Er PO 120 mg ACBREAKFAST ERICA Administration Metoclopramide HCl 10 mg 11/07/20 16:09 11/07/20 23:46 Metoclopramide 10 Mg/2 Ml Sdv IVPUSH 10 mg Q6H PRN Administration Nausea/Vomiting Non-Formulary Medication 70 mg 11/07/20 15:15 Alendronate [Fosamax] PO .SATURDAY [facility] Ondansetron HCl 4 mg 11/07/20 12:30 11/08/20 05:27 Ondansetron 4 Mg/2 Ml Sdv IVPUSH 4 mg Q4H PRN Administration Nausea/Vomiting Pravastatin Sodium 40 mg 11/07/20 21:00 11/08/20 20:08 Pravastatin 20 Mg Tab PO 40 mg BEDTIME ERICA Administration Promethazine HCl 25 mg 11/07/20 12:12 11/07/20 13:15 Promethazine 25 Mg/Ml Sdv IM 25 mg Q4H PRN Administration nausea and vomitting Sodium Chloride 10 ml 11/07/20 10:59 Sodium Chloride 0.9% 10 Ml Syringe FLUSH ASDIRECTED PRN Keep Vein Open Discontinued Medications Generic Name Dose Route Start Last Admin Trade Name Freq PRN Reason Stop Dose Admin Calcium Gluconate 2 gm 11/08/20 07:16 11/08/20 09:08 Calcium Gluconate 10% 1 Gm/10 Ml Sdv IVPUSH 11/08/20 07:17 2 gm ONETIME ONE Administration Calcium Gluconate 2 gm 11/09/20 07:02 11/09/20 07:43 Calcium Gluconate 10% 1 Gm/10 Ml Sdv IVPUSH 11/09/20 07:03 2 gm ONETIME ONE Administration Dicyclomine HCl 20 mg 11/07/20 08:12 11/07/20 08:30 Dicyclomine 20 Mg/2 Ml Sdv IM 11/07/20 08:13 20 mg ONETIME ONE Administration Haloperidol Lactate 4 mg 11/07/20 20:29 11/07/20 20:57 Haloperidol Lactate 5 Mg/Ml Sdv IM 11/07/20 20:30 4 mg ONETIME ONE Administration Sodium Chloride 1,000 mls @ 999 mls/hr 11/07/20 07:18 11/07/20 08:01 Normal Saline IV 11/07/20 08:18 999 mls/hr .BOLUS ONE Administration Magnesium Sulfate 2 gm/ Premix 50 mls @ 25 mls/hr 11/07/20 13:00 11/07/20 13:31 IV 11/07/20 14:59 25 mls/hr ONETIME ONE Administration Lorazepam 0.5 mg 11/07/20 06:08 Lorazepam 2 Mg/Ml Sdv IVPUSH BEDTIME PRN Anxiety Metoclopramide HCl 5 mg 11/07/20 05:49 11/07/20 05:59 Metoclopramide 10 Mg/2 Ml Sdv IVPUSH 11/07/20 05:50 5 mg ONETIME ONE Administration Ondansetron HCl 4 mg 11/07/20 04:39 11/07/20 04:55 Ondansetron 4 Mg/2 Ml Sdv IVPUSH 11/07/20 04:40 4 mg ONETIME ONE Administration Ondansetron HCl 4 mg 11/07/20 08:15 11/07/20 08:28 Ondansetron 4 Mg/2 Ml Sdv IVPUSH 11/07/20 08:16 4 mg ONETIME ONE Administration Ondansetron HCl 8 mg 11/07/20 17:54 11/07/20 18:15 Ondansetron 4 Mg/2 Ml Sdv IVPUSH 11/07/20 17:55 8 mg ONETIME ONE Administration Pantoprazole Sodium 40 mg 11/07/20 05:50 11/07/20 06:00 Pantoprazole 40 Mg Vial IVPUSH 11/07/20 05:51 40 mg ONETIME ONE Administration Potassium Chloride 40 meq 11/08/20 07:15 11/08/20 10:53 Potassium Chloride 10 Meq Tab.Er PO 11/08/20 09:16 40 meq Q1H ERICA Administration Sepsis Event Note (ED) - Evaluation Sepsis Screening Result: No Definite Risk
[2020-11-07] MEDS ORDERED: Pantoprazole 40 MG Vial IVPUSH ONE (05:50)
[2020-11-07] MEDS ORDERED: LORazepam 2 MG/ML SDV IVPUSH PRN (06:08)
[2020-11-07] MEDS ORDERED: Sodium Chloride 0.9% 1,000 ML IV ONE (07:18)
--- NOTE | 2020-11-07 07:39 | CT ---
PROCEDURE INFORMATION: Exam: CT Abdomen And Pelvis Without Contrast Exam date and time: 11/07/2020 6:30 AM Age: 75 years old Clinical indication: Vomiting and other: Wbc 16,800; Additional info: Abdominal pain TECHNIQUE: Imaging protocol: Computed tomography of the abdomen and pelvis without contrast. Radiation optimization: All CT scans at this facility use at least one of these dose optimization techniques: automated exposure control; mA and/or kV adjustment per patient size (includes targeted exams where dose is matched to clinical indication); or iterative reconstruction. COMPARISON: No relevant prior exams. FINDINGS: Mediastinal space: Moderate sized hiatal hernia. Liver: Normal. No mass. Gallbladder and bile ducts: Absent gallbladder. Normal bile ducts. Pancreas: Normal. No ductal dilation. Spleen: Normal. No splenomegaly. Adrenal glands: Normal. No mass. Kidneys and ureters: Normal. No hydronephrosis. Stomach and bowel: Diffuse mucosal thickening of the colon. This finding extends from the hepatic flexure to the rectum. There are diverticula of the sigmoid. No associated inflammatory changes. The small intestine is unremarkable. No inflammatory change. No obstruction. Appendix: No evidence for appendicitis. Normal diameter. No inflammation. Intraperitoneal space: Unremarkable. No free air. No significant fluid collection. Vasculature: Unremarkable. No abdominal aortic aneurysm. Lymph nodes: Unremarkable. No enlarged lymph nodes. Urinary bladder: Unremarkable as visualized. Reproductive: Unremarkable as visualized. Bones/joints: Moderately severe degenerative changes of the right hip joint. [id number] degenerative changes of the left hip joint. No fractures. Soft tissues: Unremarkable. IMPRESSION: 1. Diffuse inflammatory changes of the colon. Findings may represent infectious colitis or inflammatory bowel disease. 2. Colonic diverticular disease without diverticulitis.
[2020-11-07] MEDS ORDERED: Dicyclomine 20 MG/2 ML SDV IM ONE (08:12)
[2020-11-07] MEDS ORDERED: Sodium Chloride 0.9% 10 ML Syringe FLUSH PRN (10:59)
[2020-11-07] MEDS ORDERED: Acetaminophen 325 MG Tab PO PRN (10:59)
--- NOTE | 2020-11-07 11:08 | PCM.HP ---
H&P History of Present Illness - General Date of Service: 11/07/20 Admit Problem/Dx: Admission Diagnosis/Problem Admission Diagnosis/Problem Colitis - History of Present Illness Initial Comments - Free Text/Narative: The patient is a 75-year-old female who presents to complain of nausea, vomiting, diarrhea. She states she started feeling unwell approximate 11 PM on November 06, 2020. At that point time she developed nausea vomiting. She also admits to rigors, cough which is nonproductive, diarrhea which is watery. She states that she has had bright red blood per rectum. She denies fever, wheeze, abdominal pain, myalgia, chest pain, dyspnea. The patient Vianca that she has not used antibiotics in the last 6 months. She denies melena. She presents for further evaluation - Related Data Allergies/Adverse Reactions: Allergies Allergy/AdvReac Type Severity Reaction Status Date / Time tramadol Allergy Itching Verified 11/07/20 05:04 Home Medications: Home Meds Alendronate [Fosamax] 70 mg PO WEEKLY 09/15/16 [History] Aspirin [Halfprin] 81 mg PO DAILY 09/15/16 [History] Pravastatin [Pravachol] 40 mg PO DAILY 09/15/16 [History] atenoloL [Atenolol] 100 mg PO BID 09/15/16 [History] cloNIDine [Catapres] 0.3 mg PO TID 09/15/16 [History] Calcium Carbonate/Vitamin D3 [Caltrate 600 Plus D3 Tablet] 1 each PO DAILY 08/30/17 [History] amLODIPine [Norvasc] 10 mg PO DAILY 11/07/20 [History] Past Medical History HEENT History: Reports: Cataract, Other (See Below) Other HEENT History: left eye cataract. 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 Cardiovascular History: Reports: High Cholesterol, Hypertension, Other (See Below) Other Cardiovascular History: States mild heart attack couple years back Respiratory History: Reports: None Gastrointestinal History: Reports: Diverticulosis Other Gastrointestinal History: diverticulitis Genitourinary History: Reports: Renal Disease Other Genitourinary History: Has ultrasound on September 20 to examine kidneys, was told to discontinue Ibuprophen CLIPPING MARKER History: Reports: None Musculoskeletal History: Reports: Arthritis, Osteoarthritis Other Musculoskeletal History: osteopenia Neurological History: Reports: None Psychiatric History: Reports: Depression Endocrine/Metabolic History: Reports: Vitamin D Deficiency Other Endocrine/Metabolic History: takes caltrate Hematologic History: Reports: None Immunologic History: Reports: None Oncologic (Cancer) History: Reports: None Dermatologic History: Reports: None - Infectious Disease History Infectious Disease History: Reports: Measles - Past Surgical History Head Surgeries/Procedures: Reports: None HEENT Surgical History: Reports: None Other HEENT Surgeries/Procedures: S/P PAROTID TUMOR EXCISION Cardiovascular Surgical History: Reports: None Other Cardiovascular Surgeries/Procedures: S/P NECK PAROTID TUMOR EXCISION GI Surgical History: Reports: Colonoscopy Female Surgical History: Reports: Hysterectomy, Other (See Below) Other Female Surgeries/Procedures: complete hysterectomy 1982 Musculoskeletal Surgical History: Reports: None Social & Family History - Family History Family Medical History: No Pertinent Family History Cardiac: Reports: CAD, High Cholesterol, Hypertension Respiratory: Reports: Asthma Neurological: Reports: CVA Oncologic: Reports: Breast - Tobacco Use Tobacco Use Status *Q: Never Tobacco User - Caffeine Use Caffeine Use: Reports: Coffee, Tea Other Caffeine Use: 4-5 cups of green tea daily - Recreational Drug Use Recreational Drug Use: No H&P Review of Systems - Review of Systems: Review Of Systems: See Below General: Reports: Chills HEENT: Reports: No Symptoms Pulmonary: Reports: No Symptoms Cardiovascular: Reports: No Symptoms Gastrointestinal: Reports: Diarrhea, Nausea, Vomiting Genitourinary: Reports: No Symptoms Musculoskeletal: Reports: No Symptoms Skin: Reports: No Symptoms Psychiatric: Reports: No Symptoms Neurological: Reports: No Symptoms Immunologic: Reports: No Symptoms Exam - Exam Exam: See Below - Vital Signs Vital Signs: Last Vital Signs Temp 97.7 F 11/07/20 04:58 Pulse 66 11/07/20 04:58 Resp 20 11/07/20 04:58 BP 163/73 H 11/07/20 04:58 Pulse Ox 100 11/07/20 04:58 Weight: 166 lb 9.6 oz - Exam General: Alert, Oriented, 4 HEENT: PERRLA, Hearing Intact, Mucosa Moist & Samson, Nares Patent, Normal Nasal Septum, Posterior Pharynx Clear, Conjunctiva Clear, EOMI, EACs Clear, TMs Clear Neck: Supple, Trachea Midline, 2 Lungs: Clear to Auscultation, Normal Respiratory Effort Cardiovascular: Regular Rate, Regular Rhythm GI/Abdominal Exam: Normal Bowel Sounds, Soft, Non-Tender, No Organomegaly, No Distention, No Abnormal Bruit, No Mass, Pelvis Stable Back Exam: Normal Inspection, Full Range of Motion, NT Extremities: Normal Inspection, Normal Range of Motion, Non-Tender, No Pedal Edema, Normal Capillary Refill Peripheral Pulses: 2+: Carotid (L), Carotid (R), Brachial (L), Brachial (R), Radial (L), Radial (R), Femoral (L), Femoral (R), Popliteal (L), Popliteal (R), Posterior Tibial (L), Posterior Tibial (R), Dorsalis Pedis (L), Dorsalis Pedis (R) Skin: Warm, Dry, Intact Neurological: Cranial Nerves Intact, Reflexes Equal Bilateral Neuro Extensive - Mental Status: Alert, Oriented x3, Normal Mood/Affect, Normal Cognition Neuro Extensive - Motor, Sensory, Reflexes: CN II-XII Intact, Normal Gait, Normal Reflexes DTR: 2+: Bicep (L), Bicep (R), Tricep (L), Tricep (R), Patella (L), Patella (R), Achilles (L), Achilles (R) Psychiatric: Alert, Normal Affect, Normal Mood - Patient Data Lab Results Last 24 hrs: Laboratory Results - last 24 hr 11/07/20 11/07/20 11/07/20 Range/Units 04:53 04:53 04:53 WBC 16.8 H (5.0-10.0) 10^3/uL RBC 5.38 (4.2-5.4) 10^6/uL Hgb 15.3 D (12.0-16.0) g/dL Hct 44.7 (37.0-47.0) % MCV 83.1 D (80-100) fL MCH 28.4 (27.0-34.0) pg MCHC 34.2 (33.0-35.0) g/dL Plt Count 354 D (150-450) 10^3/uL Neut % (Auto) 75.4 H (42.2-75.2) % Lymph % (Auto) 14.7 L (20.5-50.1) % Elk % (Auto) 9.3 H (2-8) % Eos % (Auto) 0.4 L (1.0-3.0) % Baso % (Auto) 0.2 (0.0-1.0) % Add Manual Diff Yes Neutrophils % (Manual) 81 H (42-75) % Band Neutrophils % 1 % Lymphocytes % (Manual) 12 L (20-50) % Monocytes % (Manual) 6 (2-8) % Sodium 132 L (136-145) mmol/L Potassium 3.5 (3.5-5.1) mmol/L Chloride 92 L (98-107) mmol/L Carbon Dioxide 24 (21-32) mmol/L Anion Gap 19.5 H (7-13) mEq/L BUN 28 H (7-18) mg/dL Creatinine 1.40 H (0.55-1.02) mg/dL Est Cr Clr Drug Dosing 26.60 mL/min Estimated GFR (MDRD) 37 BUN/Creatinine Ratio 20.0 (No establ ref range) Glucose 139 H (70-99) mg/dL Calcium 8.9 (8.5-10.1) mg/dL Magnesium 1.7 L (1.8-2.4) mg/dL Total Bilirubin 0.7 (0.2-1.0) mg/dL AST 26 (15-37) U/L ALT 35 (14-59) U/L Alkaline Phosphatase 65 (46-116) U/L Troponin I High Sens 9 (<=51) pg/mL B-Natriuretic Peptide 63 (0-100) pg/ml Total Protein 8.0 (6.4-8.2) g/dL Albumin 4.0 (3.4-5.0) g/dL Globulin 4.0 Albumin/Globulin Ratio 1.0 Amylase 98 (25-115) U/L Lipase 272 (73-393) U/L Urine Color (YELLOW) Urine Appearance (CLEAR) Urine pH (5.0-9.0) Ur Specific Raymond (1.005-1.030) Urine Protein (NEGATIVE) Urine Glucose (UA) (NEGATIVE) Urine Ketones (NEGATIVE) Urine Occult Blood (NEGATIVE) Urine Nitrite (NEGATIVE) Urine Bilirubin (NEGATIVE) Urine Urobilinogen (0.2-1.0) mg/dL Ur Leukocyte Esterase (NEGATIVE) Urine RBC /HPF Urine WBC (0-5/HPF) /HPF Ur Epithelial Cells (NOT SEEN) /HPF Amorphous Sediment (NOT SEEN) /HPF Urine Bacteria (0-FEW/HPF) /HPF Urine Mucus (NOT SEEN) /LPF SARS-CoV-2 RNA (PAULETTE) (NEGATIVE) 11/07/20 11/07/20 Range/Units 07:08 09:46 WBC (5.0-10.0) 10^3/uL RBC (4.2-5.4) 10^6/uL Hgb (12.0-16.0) g/dL Hct (37.0-47.0) % MCV (80-100) fL MCH (27.0-34.0) pg MCHC (33.0-35.0) g/dL Plt Count (150-450) 10^3/uL Neut % (Auto) (42.2-75.2) % Lymph % (Auto) (20.5-50.1) % Elk % (Auto) (2-8) % Eos % (Auto) (1.0-3.0) % Baso % (Auto) (0.0-1.0) % Add Manual Diff Neutrophils % (Manual) (42-75) % Band Neutrophils % % Lymphocytes % (Manual) (20-50) % Monocytes % (Manual) (2-8) % Sodium (136-145) mmol/L Potassium (3.5-5.1) mmol/L Chloride (98-107) mmol/L Carbon Dioxide (21-32) mmol/L Anion Gap (7-13) mEq/L BUN (7-18) mg/dL Creatinine (0.55-1.02) mg/dL Est Cr Clr Drug Dosing mL/min Estimated GFR (MDRD) BUN/Creatinine Ratio (No establ ref range) Glucose (70-99) mg/dL Calcium (8.5-10.1) mg/dL Magnesium (1.8-2.4) mg/dL Total Bilirubin (0.2-1.0) mg/dL AST (15-37) U/L ALT (14-59) U/L Alkaline Phosphatase (46-116) U/L Troponin I High Sens (<=51) pg/mL B-Natriuretic Peptide (0-100) pg/ml Total Protein (6.4-8.2) g/dL Albumin (3.4-5.0) g/dL Globulin Albumin/Globulin Ratio Amylase (25-115) U/L Lipase (73-393) U/L Urine Color Yellow (YELLOW) Urine Appearance Clear (CLEAR) Urine pH 6.0 (5.0-9.0) Ur Specific Raymond >= 1.030 (1.005-1.030) Urine Protein 100 H (NEGATIVE) Urine Glucose (UA) Negative (NEGATIVE) Urine Ketones Negative (NEGATIVE) Urine Occult Blood Moderate H (NEGATIVE) Urine Nitrite Negative (NEGATIVE) Urine Bilirubin Negative (NEGATIVE) Urine Urobilinogen 0.2 (0.2-1.0) mg/dL Ur Leukocyte Esterase Negative (NEGATIVE) Urine RBC 10-20 H /HPF Urine WBC 0-5 (0-5/HPF) /HPF Ur Epithelial Cells Few (NOT SEEN) /HPF Amorphous Sediment Few (NOT SEEN) /HPF Urine Bacteria Few (0-FEW/HPF) /HPF Urine Mucus Few H (NOT SEEN) /LPF SARS-CoV-2 RNA (PAULETTE) Negative (NEGATIVE) Result Diagrams: 11/07/20 04:53 11/07/20 04:53 Problem List Initiated/Reviewed/Updated: Yes Orders Last 24hrs: Active Orders 24 hr Category Date Time Status Admission Diagnosis [ADT] Stat ADT 11/07/20 09:43 Ordered Admission Status [Patient Status] [ADT] Routine ADT 11/07/20 09:43 Active Antiembolic Devices [RC] PER UNIT ROUTINE Care 11/07/20 11:00 Ordered EKG 12 Lead [EKG Documentation Completion] [RC] URGENT Care 11/07/20 04:36 Active Peripheral IV Care [RC] . DIRECTED Care 11/07/20 11:01 Ordered Up With Assistance [RC] ASDIRECTED Care 11/07/20 10:59 Ordered Vital Signs [RC] Q4H Care 11/07/20 11:00 Ordered Clear Liquid Diet [DIET] Diet 11/07/20 Breakfast Ordered B-TYPE NATRIURETIC PEPTIDE,BNP [CHEM] Routine Lab 11/07/20 11:04 Ordered BASIC METABOLIC PANEL,BMP [CHEM] Routine Lab 11/08/20 05:00 Ordered CBC WITH AUTO DIFF [HEME] Routine Lab 11/08/20 05:00 Ordered CLOSTRIDIUM DIFFICILE TOX RFLX [MREF] Stat Lab 11/07/20 09:17 Ordered CRP [C-REACTIVE PROTEIN] [CHEM] Routine Lab 11/07/20 11:04 Ordered CULTURE STOOL [RM] Stat Lab 11/07/20 09:27 Ordered ESR [SEDIMENTATION RATE MANUAL] [HEME] Routine Lab 11/07/20 11:04 Ordered HGB [HEMOGLOBIN] [HEME] Q6H Lab 11/07/20 11:02 Ordered HGB [HEMOGLOBIN] [HEME] Q6H Lab 11/07/20 17:02 Ordered HGB [HEMOGLOBIN] [HEME] Q6H Lab 11/07/20 23:02 Ordered HGB [HEMOGLOBIN] [HEME] Q6H Lab 11/08/20 05:02 Ordered LACTIC ACID [CHEM] Routine Lab 11/07/20 11:04 Ordered MAGNESIUM [CHEM] Routine Lab 11/08/20 05:00 Ordered OVA PARASITE EXAM Stat Lab 11/07/20 07:42 Ordered Acetaminophen [TylenoL] Med 11/07/20 10:59 Ordered 650 mg PO Q4H PRN Magnesium Sulfate/Water [Magnesium Sulfate in Water 2 Med 11/07/20 11:03 Ordered GM/50 ML] 2 gm Premix Bag 1 bag IV ONETIME Ondansetron [Zofran] Med 11/07/20 10:59 Ordered 4 mg IVPUSH Q4H PRN Sodium Chloride 0.9% [Normal Saline] 1,000 ml Med 11/07/20 11:00 Ordered IV ASDIRECTED Sodium Chloride 0.9% [Saline Flush] Med 11/07/20 10:59 Ordered 10 ml FLUSH ASDIRECTED PRN metroNIDAZOLE/Normal Saline [Flagyl in NS 500 MG/100 ML Med 11/07/20 11:15 Ordered ] 500 mg Premix Bag 100 bag IV Q6H Peripheral IV Insertion Adult [OM.PC] Routine Oth 11/07/20 10:59 Ordered Sequential Compression Device [OM.PC] Per Unit Routine Oth 11/07/20 11:00 Ordered Resuscitation Status Routine Resus Stat 11/07/20 10:59 Ordered Medication Orders Acetaminophen (Acetaminophen 325 Mg Tab) 650 mg PO Q4H PRN PRN Reason: Pain (Mild 1-3)/fever Sodium Chloride (Normal Saline) 1,000 mls @ 75 mls/hr IV ASDIRECTED ERICA Metronidazole 500 mg/ Premix 100 mls @ 100 mls/hr IV Q6H ERICA Ondansetron HCl (Ondansetron 4 Mg/2 Ml Sdv) 4 mg IVPUSH Q4H PRN PRN Reason: Nausea/Vomiting Sodium Chloride (Sodium Chloride 0.9% 10 Ml Syringe) 10 ml FLUSH ASDIRECTED PRN PRN Reason: Keep Vein Open Assessment/Plan Comment:: Surgical History: Cholecystectomy, appendectomy, hysterectomy, parotid tumor excision, left knee surgery Family History: Hypertension, hyperlipidemia Social History: Tobacco: Never Alcohol: 1 alcoholic beverage nightly Caffeine: Coffee, tea Drugs: Never Allergies: Tramadol, minoxidil, other medications which the patient cannot recall at this time Code Status: Full Assessment / Plan: Colitis, infectious versus IBD. IV normal saline 75 mils per hour plus Flagyl 500 mg IV every 6 hours Hypomagnesemia. Will monitor magnesium levels intermittently and supplement as necessary Acute renal insufficiency. Will monitor creatinine level intermittently. IV normal saline 75 mils per hour Hyponatremia. Will monitor sodium levels intermittently. IV normal saline 75 mL's per hour Diverticulosis Microscopic hematuria. Outpatient follow-up with urology upon discharge Osteopenia Coronary artery disease, status post [place] Hyperlipidemia Hypertension Obesity. Patient be counseled regarding lifestyle modification Osteoarthritis Depression History of vitamin D deficiency Anxiety Documented history of renal artery stenosis DVT prophylaxis. Bilateral CD Disposition: Anticipate discharge in 24 to 48 hours. At the time of admission, the patient's home medications were not yet inputted to the EMR/DHR system. Once they are, they will be reviewed and reconciled END OF DOCTOR EMAMIS HISTORY AND PHYSICAL / CONSULTATION NOTE
[2020-11-07] MEDS: Ondansetron 4 MG/2 ML SDV IVPUSH PRN (11:16)
[2020-11-07] MEDS: metroNIDAZOLE/Normal Saline 500 MG in Premix Bag 100 BAG IV SCH ×3 (11:30→23:52)
[2020-11-07] MEDS: Sodium Chloride 0.9% 1,000 ML IV SCH (11:30)
[2020-11-07] MEDS ORDERED: Promethazine 25 MG/ML SDV IM PRN (12:12)
[2020-11-07] MEDS ORDERED: Magnesium Sulfate/Water 2 GM in Premix Bag 1 BAG IV ONE (13:00)
[2020-11-07] MEDS ORDERED: ALENDRONATE 70 MG PO SCH (15:15)
[2020-11-07] MEDS: Metoclopramide 10 MG/2 ML SDV IVPUSH PRN ×2 (16:33→23:46)
[2020-11-07] MEDS ORDERED: Haloperidol Lactate 5 MG/ML SDV IM ONE (20:29)
--- NOTE | 2020-11-07 22:22 | CT ---
PROCEDURE INFORMATION: Exam: CT Head Without Contrast Exam date and time: 11/07/2020 9:12 PM Age: 75 years old Clinical indication: Other: Nausea TECHNIQUE: Imaging protocol: Computed tomography of the head without contrast. Radiation optimization: All CT scans at this facility use at least one of these dose optimization techniques: automated exposure control; mA and/or kV adjustment per patient size (includes targeted exams where dose is matched to clinical indication); or iterative reconstruction. COMPARISON: No relevant prior studies available. FINDINGS: Brain: No intracranial hemorrhage is seen. No acute arterial territory stroke is noted. There is nonspecific white matter disease, likely related to chronic ischemic demyelination. Cerebral ventricles: No ventriculomegaly. Paranasal sinuses: Visualized sinuses are unremarkable. No fluid levels. Mastoid air cells: Visualized mastoid air cells are well aerated. Bones/joints: Unremarkable. No acute fracture. Soft tissues: Unremarkable. IMPRESSION: No acute finding.
[2020-11-07] MEDS: cloNIDine 0.1 MG Tab PO SCH (22:58)
[2020-11-07] MEDS: Gabapentin 100 MG Cap PO SCH (22:58)
[2020-11-07] MEDS: Pravastatin 20 MG Tab PO SCH (22:59)
[2020-11-07] MEDS: Atenolol 50 MG Tab PO SCH (22:59)
[2020-11-08] MEDS: Ondansetron 4 MG/2 ML SDV IVPUSH PRN (05:27)
[2020-11-08] MEDS: metroNIDAZOLE/Normal Saline 500 MG in Premix Bag 100 BAG IV SCH ×4 (05:28→23:29)
[2020-11-08] MEDS: Sodium Chloride 0.9% 1,000 ML IV SCH ×2 (05:29→22:37)
[2020-11-08 06:46] LABS: ANION GAP 15.9 mEq/L (7-13)
[2020-11-08] MEDS ORDERED: Calcium Gluconate 10% 1 GM/10 ML SDV IVPUSH ONE (07:16)
--- NOTE | 2020-11-08 07:22 | PCM.PN ---
- General Info Date of Service: 11/08/20 Subjective Update: The patient indicates that she is feeling overall, the same as she did during my encounter with her on November 07, 2020. She complains of persistent nausea however she denies emesis. Overnight the patient denies fever, rigors, cough, wheeze, abdominal pain, chest pain, diarrhea, or any other constitutional complaints. I explained to the patient her current medical condition and plan of care I have answered all of her questions - Review of Systems General: Reports: No Symptoms HEENT: Reports: No Symptoms Pulmonary: Reports: No Symptoms Cardiovascular: Reports: No Symptoms Gastrointestinal: Reports: Nausea Genitourinary: Reports: No Symptoms Musculoskeletal: Reports: No Symptoms Skin: Reports: No Symptoms Neurological: Reports: No Symptoms Psychiatric: Reports: No Symptoms - Patient Data Vitals - Most Recent: Last Vital Signs Temp 97 F 11/08/20 05:00 Pulse 81 11/08/20 05:00 Resp 20 11/08/20 05:00 BP 157/69 H 11/08/20 05:00 Pulse Ox 92 L 11/08/20 05:00 Weight - Most Recent: 161 lb 2 oz I&O - Last 24 Hours: Intake & Output 11/07/20 11/08/20 11/08/20 22:59 06:59 14:59 Intake Total 538 Output Total 100 400 Balance -100 138 Lab Results Last 24 Hours: Laboratory Results - last 24 hr 11/07/20 11/07/20 11/07/20 Range/Units 07:08 09:46 11:35 WBC (5.0-10.0) 10^3/uL RBC (4.2-5.4) 10^6/uL Hgb 14.6 (12.0-16.0) g/dL Hct (37.0-47.0) % MCV (80-100) fL MCH (27.0-34.0) pg MCHC (33.0-35.0) g/dL Plt Count (150-450) 10^3/uL Neut % (Auto) (42.2-75.2) % Lymph % (Auto) (20.5-50.1) % [place] % (Auto) (2-8) % Eos % (Auto) (1.0-3.0) % Baso % (Auto) (0.0-1.0) % ESR (0-20) mm/hr Sodium (136-145) mmol/L Potassium (3.5-5.1) mmol/L Chloride (98-107) mmol/L Carbon Dioxide (21-32) mmol/L Anion Gap (7-13) mEq/L BUN (7-18) mg/dL Creatinine (0.55-1.02) mg/dL Est Cr Clr Drug Dosing mL/min Estimated GFR (MDRD) Glucose (70-99) mg/dL Lactic Acid (0.4-2.0) mmol/L Calcium (8.5-10.1) mg/dL Magnesium (1.8-2.4) mg/dL C-Reactive Protein (0.0-0.9) mg/dL Urine Color Yellow (YELLOW) Urine Appearance Clear (CLEAR) Urine pH 6.0 (5.0-9.0) Ur Specific [place] >= 1.030 (1.005-1.030) Urine Protein 100 H (NEGATIVE) Urine Glucose (UA) Negative (NEGATIVE) Urine Ketones Negative (NEGATIVE) Urine Occult Blood Moderate H (NEGATIVE) Urine Nitrite Negative (NEGATIVE) Urine Bilirubin Negative (NEGATIVE) Urine Urobilinogen 0.2 (0.2-1.0) mg/dL Ur Leukocyte Esterase Negative (NEGATIVE) Urine RBC 10-20 H /HPF Urine WBC 0-5 (0-5/HPF) /HPF Ur Epithelial Cells Few (NOT SEEN) /HPF Amorphous Sediment Few (NOT SEEN) /HPF Urine Bacteria Few (0-FEW/HPF) /HPF Urine Mucus Few H (NOT SEEN) /LPF SARS-CoV-2 RNA ([place]) Negative (NEGATIVE) 11/07/20 11/07/20 11/07/20 Range/Units 11:35 11:35 11:35 WBC (5.0-10.0) 10^3/uL RBC (4.2-5.4) 10^6/uL Hgb (12.0-16.0) g/dL Hct (37.0-47.0) % MCV (80-100) fL MCH (27.0-34.0) pg MCHC (33.0-35.0) g/dL Plt Count (150-450) 10^3/uL Neut % (Auto) (42.2-75.2) % Lymph % (Auto) (20.5-50.1) % [place] % (Auto) (2-8) % Eos % (Auto) (1.0-3.0) % Baso % (Auto) (0.0-1.0) % ESR 7 (0-20) mm/hr Sodium (136-145) mmol/L Potassium (3.5-5.1) mmol/L Chloride (98-107) mmol/L Carbon Dioxide (21-32) mmol/L Anion Gap (7-13) mEq/L BUN (7-18) mg/dL Creatinine (0.55-1.02) mg/dL Est Cr Clr Drug Dosing mL/min Estimated GFR (MDRD) Glucose (70-99) mg/dL Lactic Acid 4.4 H* (0.4-2.0) mmol/L Calcium (8.5-10.1) mg/dL Magnesium (1.8-2.4) mg/dL C-Reactive Protein 0.7 (0.0-0.9) mg/dL Urine Color (YELLOW) Urine Appearance (CLEAR) Urine pH (5.0-9.0) Ur Specific [place] (1.005-1.030) Urine Protein (NEGATIVE) Urine Glucose (UA) (NEGATIVE) Urine Ketones (NEGATIVE) Urine Occult Blood (NEGATIVE) Urine Nitrite (NEGATIVE) Urine Bilirubin (NEGATIVE) Urine Urobilinogen (0.2-1.0) mg/dL Ur Leukocyte Esterase (NEGATIVE) Urine RBC /HPF Urine WBC (0-5/HPF) /HPF Ur Epithelial Cells (NOT SEEN) /HPF Amorphous Sediment (NOT SEEN) /HPF Urine Bacteria (0-FEW/HPF) /HPF Urine Mucus (NOT SEEN) /LPF SARS-CoV-2 RNA ([place]) (NEGATIVE) 11/07/20 11/07/20 11/07/20 Range/Units 16:12 16:12 23:12 WBC (5.0-10.0) 10^3/uL RBC (4.2-5.4) 10^6/uL Hgb 13.6 14.0 (12.0-16.0) g/dL Hct (37.0-47.0) % MCV (80-100) fL MCH (27.0-34.0) pg MCHC (33.0-35.0) g/dL Plt Count (150-450) 10^3/uL Neut % (Auto) (42.2-75.2) % Lymph % (Auto) (20.5-50.1) % [place] % (Auto) (2-8) % Eos % (Auto) (1.0-3.0) % Baso % (Auto) (0.0-1.0) % ESR (0-20) mm/hr Sodium (136-145) mmol/L Potassium (3.5-5.1) mmol/L Chloride (98-107) mmol/L Carbon Dioxide (21-32) mmol/L Anion Gap (7-13) mEq/L BUN (7-18) mg/dL Creatinine (0.55-1.02) mg/dL Est Cr Clr Drug Dosing mL/min Estimated GFR (MDRD) Glucose (70-99) mg/dL Lactic Acid 1.9 (0.4-2.0) mmol/L Calcium (8.5-10.1) mg/dL Magnesium (1.8-2.4) mg/dL C-Reactive Protein (0.0-0.9) mg/dL Urine Color (YELLOW) Urine Appearance (CLEAR) Urine pH (5.0-9.0) Ur Specific [place] (1.005-1.030) Urine Protein (NEGATIVE) Urine Glucose (UA) (NEGATIVE) Urine Ketones (NEGATIVE) Urine Occult Blood (NEGATIVE) Urine Nitrite (NEGATIVE) Urine Bilirubin (NEGATIVE) Urine Urobilinogen (0.2-1.0) mg/dL Ur Leukocyte Esterase (NEGATIVE) Urine RBC /HPF Urine WBC (0-5/HPF) /HPF Ur Epithelial Cells (NOT SEEN) /HPF Amorphous Sediment (NOT SEEN) /HPF Urine Bacteria (0-FEW/HPF) /HPF Urine Mucus (NOT SEEN) /LPF SARS-CoV-2 RNA ([place]) (NEGATIVE) 11/08/20 11/08/20 Range/Units 06:00 06:00 WBC 12.3 H (5.0-10.0) 10^3/uL RBC 4.70 (4.2-5.4) 10^6/uL Hgb 13.4 (12.0-16.0) g/dL Hct 39.6 (37.0-47.0) % MCV 84.3 (80-100) fL MCH 28.5 (27.0-34.0) pg MCHC 33.8 (33.0-35.0) g/dL Plt Count 299 (150-450) 10^3/uL Neut % (Auto) 78.3 H (42.2-75.2) % Lymph % (Auto) 12.5 L (20.5-50.1) % [place] % (Auto) 9.1 H (2-8) % Eos % (Auto) 0.0 L (1.0-3.0) % Baso % (Auto) 0.1 (0.0-1.0) % ESR (0-20) mm/hr Sodium 137 (136-145) mmol/L Potassium 2.9 L (3.5-5.1) mmol/L Chloride 99 (98-107) mmol/L Carbon Dioxide 25 (21-32) mmol/L Anion Gap 15.9 H (7-13) mEq/L BUN 18 (7-18) mg/dL Creatinine 1.11 H (0.55-1.02) mg/dL Est Cr Clr Drug Dosing 33.55 mL/min Estimated GFR (MDRD) 48 Glucose 144 H (70-99) mg/dL Lactic Acid (0.4-2.0) mmol/L Calcium 7.2 L D (8.5-10.1) mg/dL Magnesium 2.3 (1.8-2.4) mg/dL C-Reactive Protein (0.0-0.9) mg/dL Urine Color (YELLOW) Urine Appearance (CLEAR) Urine pH (5.0-9.0) Ur Specific [place] (1.005-1.030) Urine Protein (NEGATIVE) Urine Glucose (UA) (NEGATIVE) Urine Ketones (NEGATIVE) Urine Occult Blood (NEGATIVE) Urine Nitrite (NEGATIVE) Urine Bilirubin (NEGATIVE) Urine Urobilinogen (0.2-1.0) mg/dL Ur Leukocyte Esterase (NEGATIVE) Urine RBC /HPF Urine WBC (0-5/HPF) /HPF Ur Epithelial Cells (NOT SEEN) /HPF Amorphous Sediment (NOT SEEN) /HPF Urine Bacteria (0-FEW/HPF) /HPF Urine Mucus (NOT SEEN) /LPF SARS-CoV-2 RNA ([place]) (NEGATIVE) Med Orders - Current: Current Medications Acetaminophen (Acetaminophen 325 Mg Tab) 650 mg PO Q4H PRN PRN Reason: Pain (Mild 1-3)/fever Amlodipine Besylate (Amlodipine 5 Mg Tab) 10 mg PO DAILY [facility] Aspirin (Aspirin 81 Mg Tab.Ec) 81 mg PO DAILY [facility] Atenolol (Atenolol 50 Mg Tab) 100 mg PO BID [facility] Last Admin: 11/07/20 22:59 Dose: Not Given Documented by: Calcitriol (Calcitriol 0.25 Mcg Cap) 0.5 mcg PO DAILY [facility] Calcium Gluconate (Calcium Gluconate 10% 1 Gm/10 Ml Sdv) 2 gm IVPUSH ONETIME ONE Stop: 11/08/20 07:17 Clonidine HCl (Clonidine 0.1 Mg Tab) 0.3 mg PO TID [facility] Last Admin: 11/07/20 22:58 Dose: Not Given Documented by: Gabapentin (Gabapentin 100 Mg Cap) 100 mg PO BID [facility] Last Admin: 11/07/20 22:58 Dose: Not Given Documented by: Sodium Chloride (Normal Saline) 1,000 mls @ 75 mls/hr IV ASDIRECTED [facility] Last Admin: 11/08/20 05:29 Dose: 75 mls/hr Documented by: Metronidazole 500 mg/ Premix 100 mls @ 100 mls/hr IV Q6HR [facility] Last Infusion: 11/08/20 06:30 Dose: Infused Documented by: Isosorbide Mononitrate (Isosorbide Mononitrate 60 Mg Tab.Er) 120 mg PO ACBREAKFAST [facility] Metoclopramide HCl (Metoclopramide 10 Mg/2 Ml Sdv) 10 mg IVPUSH Q6H PRN PRN Reason: Nausea/Vomiting Last Admin: 11/07/20 23:46 Dose: 10 mg Documented by: Non-Formulary Medication (Alendronate [Fosamax]) 70 mg PO .SATURDAY [facility] Ondansetron HCl (Ondansetron 4 Mg/2 Ml Sdv) 4 mg IVPUSH Q4H PRN PRN Reason: Nausea/Vomiting Last Admin: 11/08/20 05:27 Dose: 4 mg Documented by: Potassium Chloride (Potassium Chloride 10 Meq Tab.Er) 40 meq PO Q1H [facility] Stop: 11/08/20 09:16 Pravastatin Sodium (Pravastatin 20 Mg Tab) 40 mg PO BEDTIME [facility] Last Admin: 11/07/20 22:59 Dose: Not Given Documented by: Promethazine HCl (Promethazine 25 Mg/Ml Sdv) 25 mg IM Q4H PRN PRN Reason: nausea and vomitting Last Admin: 11/07/20 13:15 Dose: 25 mg Documented by: Sodium Chloride (Sodium Chloride 0.9% 10 Ml Syringe) 10 ml FLUSH ASDIRECTED PRN PRN Reason: Keep Vein Open Discontinued Medications Dicyclomine HCl (Dicyclomine 20 Mg/2 Ml Sdv) 20 mg IM ONETIME ONE Stop: 11/07/20 08:13 Last Admin: 11/07/20 08:30 Dose: 20 mg Documented by: Haloperidol Lactate (Haloperidol Lactate 5 Mg/Ml Sdv) 4 mg IM ONETIME ONE Stop: 11/07/20 20:30 Last Admin: 11/07/20 20:57 Dose: 4 mg Documented by: Sodium Chloride (Normal Saline) 1,000 mls @ 999 mls/hr IV .BOLUS ONE Stop: 11/07/20 08:18 Last Admin: 11/07/20 08:01 Dose: 999 mls/hr Documented by: Magnesium Sulfate 2 gm/ Premix 50 mls @ 25 mls/hr IV ONETIME ONE Stop: 11/07/20 14:59 Last Admin: 11/07/20 13:31 Dose: 25 mls/hr Documented by: Lorazepam (Lorazepam 2 Mg/Ml Sdv) 0.5 mg IVPUSH BEDTIME PRN PRN Reason: Anxiety Metoclopramide HCl (Metoclopramide 10 Mg/2 Ml Sdv) 5 mg IVPUSH ONETIME ONE Stop: 11/07/20 05:50 Last Admin: 11/07/20 05:59 Dose: 5 mg Documented by: Ondansetron HCl (Ondansetron 4 Mg/2 Ml Sdv) 4 mg IVPUSH ONETIME ONE Stop: 11/07/20 04:40 Last Admin: 11/07/20 04:55 Dose: 4 mg Documented by: Ondansetron HCl (Ondansetron 4 Mg/2 Ml Sdv) 4 mg IVPUSH ONETIME ONE Stop: 11/07/20 08:16 Last Admin: 11/07/20 08:28 Dose: 4 mg Documented by: Ondansetron HCl (Ondansetron 4 Mg/2 Ml Sdv) 8 mg IVPUSH ONETIME ONE Stop: 11/07/20 17:55 Last Admin: 11/07/20 18:15 Dose: 8 mg Documented by: Pantoprazole Sodium (Pantoprazole 40 Mg Vial) 40 mg IVPUSH ONETIME ONE Stop: 11/07/20 05:51 Last Admin: 11/07/20 06:00 Dose: 40 mg Documented by: - Exam General: Alert, Oriented HEENT: Pupils Equal, Pupils Reactive, EOMI, Mucous Membr. Moist/[place] Neck: Supple Lungs: Clear to Auscultation, Normal Respiratory Effort Cardiovascular: Regular Rate, Regular Rhythm GI/Abdominal Exam: Normal Bowel Sounds, Soft, Non-Tender, No Organomegaly, No Distention, No Abnormal Bruit, No Mass, Pelvis Stable Back Exam: Normal Inspection, Full Range of Motion Extremities: Normal Inspection, Normal Range of Motion, Non-Tender, No Pedal Edema, Normal Capillary Refill Peripheral Pulses: 2+: Carotid (L), Carotid (R), Brachial (L), Brachial (R), Radial (L), Radial (R), Femoral (L), Femoral (R), Popliteal (L), Popliteal (R), Posterior Tibial (L), Posterior Tibial (R), Dorsalis Pedis (L), Dorsalis Pedis (R) Skin: Warm, Dry, Intact Wound/Incisions: Healing Well Neurological: No New Focal Deficit Psy/Mental Status: Alert, Normal Affect, Normal Mood - Patient Data Lab Results Last 24 hrs: Laboratory Results - last 24 hr 11/07/20 11/07/20 11/07/20 Range/Units 07:08 09:46 11:35 WBC (5.0-10.0) 10^3/uL RBC (4.2-5.4) 10^6/uL Hgb 14.6 (12.0-16.0) g/dL Hct (37.0-47.0) % MCV (80-100) fL MCH (27.0-34.0) pg MCHC (33.0-35.0) g/dL Plt Count (150-450) 10^3/uL Neut % (Auto) (42.2-75.2) % Lymph % (Auto) (20.5-50.1) % [place] % (Auto) (2-8) % Eos % (Auto) (1.0-3.0) % Baso % (Auto) (0.0-1.0) % ESR (0-20) mm/hr Sodium (136-145) mmol/L Potassium (3.5-5.1) mmol/L Chloride (98-107) mmol/L Carbon Dioxide (21-32) mmol/L Anion Gap (7-13) mEq/L BUN (7-18) mg/dL Creatinine (0.55-1.02) mg/dL Est Cr Clr Drug Dosing mL/min Estimated GFR (MDRD) Glucose (70-99) mg/dL Lactic Acid (0.4-2.0) mmol/L Calcium (8.5-10.1) mg/dL Magnesium (1.8-2.4) mg/dL C-Reactive Protein (0.0-0.9) mg/dL Urine Color Yellow (YELLOW) Urine Appearance Clear (CLEAR) Urine pH 6.0 (5.0-9.0) Ur Specific [place] >= 1.030 (1.005-1.030) Urine Protein 100 H (NEGATIVE) Urine Glucose (UA) Negative (NEGATIVE) Urine Ketones Negative (NEGATIVE) Urine Occult Blood Moderate H (NEGATIVE) Urine Nitrite Negative (NEGATIVE) Urine Bilirubin Negative (NEGATIVE) Urine Urobilinogen 0.2 (0.2-1.0) mg/dL Ur Leukocyte Esterase Negative (NEGATIVE) Urine RBC 10-20 H /HPF Urine WBC 0-5 (0-5/HPF) /HPF Ur Epithelial Cells Few (NOT SEEN) /HPF Amorphous Sediment Few (NOT SEEN) /HPF Urine Bacteria Few (0-FEW/HPF) /HPF Urine Mucus Few H (NOT SEEN) /LPF SARS-CoV-2 RNA ([place]) Negative (NEGATIVE) 11/07/20 11/07/20 11/07/20 Range/Units 11:35 11:35 11:35 WBC (5.0-10.0) 10^3/uL RBC (4.2-5.4) 10^6/uL Hgb (12.0-16.0) g/dL Hct (37.0-47.0) % MCV (80-100) fL MCH (27.0-34.0) pg MCHC (33.0-35.0) g/dL Plt Count (150-450) 10^3/uL Neut % (Auto) (42.2-75.2) % Lymph % (Auto) (20.5-50.1) % [place] % (Auto) (2-8) % Eos % (Auto) (1.0-3.0) % Baso % (Auto) (0.0-1.0) % ESR 7 (0-20) mm/hr Sodium (136-145) mmol/L Potassium (3.5-5.1) mmol/L Chloride (98-107) mmol/L Carbon Dioxide (21-32) mmol/L Anion Gap (7-13) mEq/L BUN (7-18) mg/dL Creatinine (0.55-1.02) mg/dL Est Cr Clr Drug Dosing mL/min Estimated GFR (MDRD) Glucose (70-99) mg/dL Lactic Acid 4.4 H* (0.4-2.0) mmol/L Calcium (8.5-10.1) mg/dL Magnesium (1.8-2.4) mg/dL C-Reactive Protein 0.7 (0.0-0.9) mg/dL Urine Color (YELLOW) Urine Appearance (CLEAR) Urine pH (5.0-9.0) Ur Specific [place] (1.005-1.030) Urine Protein (NEGATIVE) Urine Glucose (UA) (NEGATIVE) Urine Ketones (NEGATIVE) Urine Occult Blood (NEGATIVE) Urine Nitrite (NEGATIVE) Urine Bilirubin (NEGATIVE) Urine Urobilinogen (0.2-1.0) mg/dL Ur Leukocyte Esterase (NEGATIVE) Urine RBC /HPF Urine WBC (0-5/HPF) /HPF Ur Epithelial Cells (NOT SEEN) /HPF Amorphous Sediment (NOT SEEN) /HPF Urine Bacteria (0-FEW/HPF) /HPF Urine Mucus (NOT SEEN) /LPF SARS-CoV-2 RNA ([place]) (NEGATIVE) 11/07/20 11/07/20 11/07/20 Range/Units 16:12 16:12 23:12 WBC (5.0-10.0) 10^3/uL RBC (4.2-5.4) 10^6/uL Hgb 13.6 14.0 (12.0-16.0) g/dL Hct (37.0-47.0) % MCV (80-100) fL MCH (27.0-34.0) pg MCHC (33.0-35.0) g/dL Plt Count (150-450) 10^3/uL Neut % (Auto) (42.2-75.2) % Lymph % (Auto) (20.5-50.1) % [place] % (Auto) (2-8) % Eos % (Auto) (1.0-3.0) % Baso % (Auto) (0.0-1.0) % ESR (0-20) mm/hr Sodium (136-145) mmol/L Potassium (3.5-5.1) mmol/L Chloride (98-107) mmol/L Carbon Dioxide (21-32) mmol/L Anion Gap (7-13) mEq/L BUN (7-18) mg/dL Creatinine (0.55-1.02) mg/dL Est Cr Clr Drug Dosing mL/min Estimated GFR (MDRD) Glucose (70-99) mg/dL Lactic Acid 1.9 (0.4-2.0) mmol/L Calcium (8.5-10.1) mg/dL Magnesium (1.8-2.4) mg/dL C-Reactive Protein (0.0-0.9) mg/dL Urine Color (YELLOW) Urine Appearance (CLEAR) Urine pH (5.0-9.0) Ur Specific [place] (1.005-1.030) Urine Protein (NEGATIVE) Urine Glucose (UA) (NEGATIVE) Urine Ketones (NEGATIVE) Urine Occult Blood (NEGATIVE) Urine Nitrite (NEGATIVE) Urine Bilirubin (NEGATIVE) Urine Urobilinogen (0.2-1.0) mg/dL Ur Leukocyte Esterase (NEGATIVE) Urine RBC /HPF Urine WBC (0-5/HPF) /HPF Ur Epithelial Cells (NOT SEEN) /HPF Amorphous Sediment (NOT SEEN) /HPF Urine Bacteria (0-FEW/HPF) /HPF Urine Mucus (NOT SEEN) /LPF SARS-CoV-2 RNA ([place]) (NEGATIVE) 11/08/20 11/08/20 Range/Units 06:00 06:00 WBC 12.3 H (5.0-10.0) 10^3/uL RBC 4.70 (4.2-5.4) 10^6/uL Hgb 13.4 (12.0-16.0) g/dL Hct 39.6 (37.0-47.0) % MCV 84.3 (80-100) fL MCH 28.5 (27.0-34.0) pg MCHC 33.8 (33.0-35.0) g/dL Plt Count 299 (150-450) 10^3/uL Neut % (Auto) 78.3 H (42.2-75.2) % Lymph % (Auto) 12.5 L (20.5-50.1) % [place] % (Auto) 9.1 H (2-8) % Eos % (Auto) 0.0 L (1.0-3.0) % Baso % (Auto) 0.1 (0.0-1.0) % ESR (0-20) mm/hr Sodium 137 (136-145) mmol/L Potassium 2.9 L (3.5-5.1) mmol/L Chloride 99 (98-107) mmol/L Carbon Dioxide 25 (21-32) mmol/L Anion Gap 15.9 H (7-13) mEq/L BUN 18 (7-18) mg/dL Creatinine 1.11 H (0.55-1.02) mg/dL Est Cr Clr Drug Dosing 33.55 mL/min Estimated GFR (MDRD) 48 Glucose 144 H (70-99) mg/dL Lactic Acid (0.4-2.0) mmol/L Calcium 7.2 L D (8.5-10.1) mg/dL Magnesium 2.3 (1.8-2.4) mg/dL C-Reactive Protein (0.0-0.9) mg/dL Urine Color (YELLOW) Urine Appearance (CLEAR) Urine pH (5.0-9.0) Ur Specific [place] (1.005-1.030) Urine Protein (NEGATIVE) Urine Glucose (UA) (NEGATIVE) Urine Ketones (NEGATIVE) Urine Occult Blood (NEGATIVE) Urine Nitrite (NEGATIVE) Urine Bilirubin (NEGATIVE) Urine Urobilinogen (0.2-1.0) mg/dL Ur Leukocyte Esterase (NEGATIVE) Urine RBC /HPF Urine WBC (0-5/HPF) /HPF Ur Epithelial Cells (NOT SEEN) /HPF Amorphous Sediment (NOT SEEN) /HPF Urine Bacteria (0-FEW/HPF) /HPF Urine Mucus (NOT SEEN) /LPF SARS-CoV-2 RNA ([place]) (NEGATIVE) Result Diagrams: 11/08/20 06:00 11/08/20 06:00 Sepsis Event Note - Evaluation Sepsis Screening Result: No Definite Risk - Focused Exam Vital Signs: Vital Signs Temp Pulse Pulse Resp BP BP Pulse Ox 11/08/20 05:00 97 F 81 20 157/69 H 92 L 11/07/20 22:59 79 151/71 H 11/07/20 22:58 151/71 H 11/07/20 22:40 98.9 F 78 20 156/72 H 92 L - Problem List Review Problem List Initiated/Reviewed/Updated: Yes - My Orders Last 24 Hours: My Active Orders 11/07/20 Breakfast Clear Liquid Diet [DIET] 11/07/20 10:59 Up With Assistance [RC] ASDIRECTED Acetaminophen [TylenoL] 650 mg PO Q4H PRN Sodium Chloride 0.9% [Saline Flush] 10 ml FLUSH ASDIRECTED PRN Peripheral IV Insertion Adult [OM.PC] Routine Resuscitation Status Routine 11/07/20 11:00 Antiembolic Devices [RC] PER UNIT ROUTINE Vital Signs [RC] 00,04,08,12,16,20 Sodium Chloride 0.9% [Normal Saline] 1,000 ml IV ASDIRECTED Sequential Compression Device [OM.PC] Per Unit Routine 11/07/20 11:01 Peripheral IV Care [RC] ,11/07/20 12:00 metroNIDAZOLE/Normal Saline [Flagyl in NS 500 MG/100 ML] 500 mg Premix Bag 100 bag IV Q6HR 11/07/20 12:12 Promethazine [Phenergan] 25 mg IM Q4H PRN 11/07/20 12:30 Ondansetron [Zofran] 4 mg IVPUSH Q4H PRN 11/07/20 15:15 Alendronate [Fosamax] 70 mg PO .Saturday11/07/20 16:09 Metoclopramide [Reglan] 10 mg IVPUSH Q6H PRN 11/07/20 21:00 Gabapentin [Neurontin] 100 mg PO BID Pravastatin [Pravachol] 40 mg PO BEDTIME atenoloL [Tenormin] 100 mg PO BID cloNIDine [Catapres] 0.3 mg PO TID 11/08/20 07:15 Potassium Chloride [Klor-Con 10] 40 meq PO Q1H 11/08/20 07:16 Calcium Gluconate 2 gm IVPUSH ONETIME ONE 11/08/20 09:00 Aspirin [Halfprin] 81 mg PO DAILY amLODIPine [Norvasc] 10 mg PO DAILY calcitrioL [Rocaltrol] 0.5 mcg PO DAILY 11/09/20 05:00 BASIC METABOLIC PANEL,BMP [CHEM] Routine 11/09/20 06:00 Isosorbide Mononitrate [Imdur] 120 mg PO ACBREAKFAST - Plan Plan:: Surgical History: Cholecystectomy, appendectomy, hysterectomy, parotid tumor excision, left knee surgery Family History: Hypertension, hyperlipidemia Social History: Tobacco: Never Alcohol: 1 alcoholic beverage nightly Caffeine: Coffee, tea Drugs: Never Allergies: Tramadol, minoxidil, other medications which the patient cannot recall at this time Code Status: Full Assessment / Plan: Colitis, infectious versus IBD. IV normal saline 75 mils per hour plus Flagyl 500 mg IV every 6 hours Hypomagnesemia. Will monitor magnesium levels intermittently and supplement as necessary Acute renal insufficiency. Will monitor creatinine level intermittently. IV normal saline 75 mils per hour Hyponatremia. Will monitor sodium levels intermittently. IV normal saline 75 mL's per hour Diverticulosis Microscopic hematuria. Outpatient follow-up with urology upon discharge Osteopenia. Fosamax 70 mg p.o. q. Saturday Coronary artery disease, status post [place]. Aspirin 81 mg p.o. daily plus atenolol 100 mg p.o. twice daily plus pravastatin 40 mg p.o. nightly plus Imdur 120 mg p.o. daily Hyperlipidemia. Pravastatin 40 mg p.o. nightly Hypertension. Norvasc 10 mg p.o. daily plus atenolol 100 mg p.o. daily plus clonidine 0.3 mg p.o. 3 times daily plus Imdur 120 mg p.o. daily Query chronic kidney disease. Calcitriol 0.5 mcg p.o. daily Neuropathy. Gabapentin 100 mg p.o. twice daily Hypokalemia. Will monitor potassium levels intermittently and supplement as necessary Hypocalcemia. Will monitor calcium levels intermittently and supplement as necessary Obesity. Patient be counseled regarding lifestyle modification Osteoarthritis Depression History of vitamin D deficiency Anxiety Documented history of renal artery stenosis DVT prophylaxis. Bilateral CD Disposition: Anticipate discharge in 24 to 48 hours END OF DOCTOR [facility]AM[facility] HISTORY AND PHYSICAL / CONSULTATION NOTE
[2020-11-08] MEDS: Potassium Chloride 10 MEQ Tab.ER PO SCH ×3 (07:48→10:53)
[2020-11-08] MEDS: Calcitriol 0.25 MCG Cap PO SCH (09:06)
[2020-11-08] MEDS: Gabapentin 100 MG Cap PO SCH ×2 (09:06→20:07)
[2020-11-08] MEDS: amLODIPine 5 MG Tab PO SCH (09:07)
[2020-11-08] MEDS: Aspirin 81 MG Tab.EC PO SCH (09:07)
[2020-11-08] MEDS: Atenolol 50 MG Tab PO SCH ×2 (09:07→20:08)
[2020-11-08] MEDS: cloNIDine 0.1 MG Tab PO SCH ×3 (09:08→20:07)
[2020-11-08] MEDS: Pravastatin 20 MG Tab PO SCH (20:08)
[2020-11-09] MEDS: metroNIDAZOLE/Normal Saline 500 MG in Premix Bag 100 BAG IV SCH (05:03)
[2020-11-09] MEDS ORDERED: Isosorbide Mononitrate 60 MG Tab.ER PO SCH (06:00)
[2020-11-09 06:53] LABS: ANION GAP 15.1 mEq/L (7-13)
[2020-11-09] MEDS ORDERED: Calcium Gluconate 10% 1 GM/10 ML SDV IVPUSH ONE (07:02)
--- NOTE | 2020-11-09 07:14 | PCM.DCSUM1 ---
Discharge Summary - Hospital Course Free Text/Narrative:: START OF DOCTOR [facility] DISCHARGE SUMMARY Date of Admission: November 07, 2020 Date of Discharge: 7:12 AM on November 09, 2020 Primary Diagnosis: Colitis, infectious versus IBD Secondary Diagnosis: Hypomagnesemia, resolved Hyponatremia, resolved Diverticulosis Microscopic hematuria Osteopenia Coronary artery disease, status post MO Hyperlipidemia Hypertension Acute versus question of chronic kidney disease Neuropathy Hypokalemia, resolved Hypocalcemia, status post treatment Obesity Osteoarthritis Depression History of vitamin D deficiency Anxiety Documented history of renal artery stenosis Consultations: None Condition on Discharge: Fair Disposition: The patient will be advised follow-up with urology 1 to 2 weeks post discharge for diagnosis microscopic hematuria The patient is advised to follow-up with her primary care physician or with a provider 5 to 7 days post discharge for posthospitalization evaluation and for follow-up on CMP which will be ordered 3 days post discharge for diagnosis of hypercalcemia CMP 3 days post discharge for diagnosis of hypocalcemia Discharge Medications: Calcitriol 0.5 mcg p.o. daily Atenolol 100 mg p.o. twice daily Aspirin 81 mg p.o. daily Norvasc 10 mg p.o. daily Fosamax 70 mg p.o. q. Saturday Calcium carbonate/vitamin D: Unspecified dose: 1 tab p.o. daily Flagyl 500 mg p.o. every 6 hours. Quantity 28. 0 refills Pravastatin 40 mg p.o. daily Imdur 120 mg p.o. daily Gabapentin 100 mg p.o. twice daily Clonidine 0.3 mg p.o. 3 times daily Zofran ODT: 4 mg p.o. every 4 hours as needed nausea/vomiting. Quantity 15. 0 refills END OF DOCTOR [facility] DISCHARGE SUMMARY - Discharge Data Discharge Date: 11/09/20 Discharge Disposition: Home, Self-Care 01 Condition: Fair - Referral to Home Health Primary Care Physician: PCP Unobtainable - Patient Instructions Diet: Heart Healthy Diet, Low Sodium Activity: As Tolerated - Discharge Plan Prescriptions/Med Rec: metroNIDAZOLE [Flagyl] 500 mg PO Q6H 7 Days #28 tab Isosorbide Mononitrate [Imdur] 120 mg PO ACBREAKFAST 30 Days #30 tab.er Ondansetron [Zofran ODT] 4 mg PO Q4H PRN 15 Days #15 tab.dis PRN Reason: Nausea/Vomiting Home Medications: Home Meds Alendronate [Fosamax] 70 mg PO .Saturday09/15/16 [History] Aspirin [Halfprin] 81 mg PO DAILY 09/15/16 [History] Pravastatin [Pravachol] 40 mg PO DAILY 09/15/16 [History] atenoloL [Atenolol] 100 mg PO BID 09/15/16 [History] cloNIDine [Catapres] 0.3 mg PO TID 09/15/16 [History] Calcium Carbonate/Vitamin D3 [Caltrate 600 Plus D3 Tablet] 1 each PO DAILY 08/30/17 [History] Calcitriol 0.5 mg PO DAILY 11/07/20 [History] Gabapentin [Neurontin] 100 mg PO BID 11/07/20 [History] amLODIPine [Norvasc] 10 mg PO DAILY 11/07/20 [History] Isosorbide Mononitrate [Imdur] 120 mg PO ACBREAKFAST 30 Days #30 tab.er 11/09/20 [Rx] Ondansetron [Zofran ODT] 4 mg PO Q4H PRN 15 Days #15 tab.dis 11/09/20 [Rx] metroNIDAZOLE [Flagyl] 500 mg PO Q6H 7 Days #28 tab 11/09/20 [Rx] Forms: ED Department Discharge Referrals: PCP,Unobtain [Primary Care Provider] - - Discharge Summary/Plan Comment DC Time >30 min.: Yes - General Info Date of Service: 11/09/20 - Review of Systems General: Reports: No Symptoms HEENT: Reports: No Symptoms Pulmonary: Reports: No Symptoms Cardiovascular: Reports: No Symptoms Gastrointestinal: Reports: No Symptoms Genitourinary: Reports: No Symptoms Musculoskeletal: Reports: No Symptoms Skin: Reports: No Symptoms Neurological: Reports: No Symptoms Psychiatric: Reports: No Symptoms - Patient Data Vitals - Most Recent: Last Vital Signs Temp 97.3 F 11/09/20 04:00 Pulse 65 11/09/20 04:00 Resp 20 11/09/20 04:00 BP 129/87 11/09/20 04:00 Pulse Ox 93 L 11/09/20 04:00 Weight - Most Recent: 161 lb 2 oz I&O - Last 24 hours: Intake & Output 11/08/20 11/09/20 11/09/20 22:59 06:59 14:59 Intake Total 500 200 Balance 500 200 Lab Results - Last 24 hrs: Laboratory Results - last 24 hr 11/09/20 Range/Units 06:11 Sodium 139 (136-145) mmol/L Potassium 4.1 (3.5-5.1) mmol/L Chloride 105 (98-107) mmol/L Carbon Dioxide 23 (21-32) mmol/L Anion Gap 15.1 H (7-13) mEq/L BUN 16 (7-18) mg/dL Creatinine 1.17 H (0.55-1.02) mg/dL Est Cr Clr Drug Dosing 31.83 mL/min Estimated GFR (MDRD) 45 Glucose 98 (70-99) mg/dL Calcium 7.3 L (8.5-10.1) mg/dL Med Orders - Current: Current Medications Acetaminophen (Acetaminophen 325 Mg Tab) 650 mg PO Q4H PRN PRN Reason: Pain (Mild 1-3)/fever Amlodipine Besylate (Amlodipine 5 Mg Tab) 10 mg PO DAILY [facility] Last Admin: 11/08/20 09:07 Dose: 10 mg Documented by: Aspirin (Aspirin 81 Mg Tab.Ec) 81 mg PO DAILY [facility] Last Admin: 11/08/20 09:07 Dose: 81 mg Documented by: Atenolol (Atenolol 50 Mg Tab) 100 mg PO BID [facility] Last Admin: 11/08/20 20:08 Dose: 100 mg Documented by: Calcitriol (Calcitriol 0.25 Mcg Cap) 0.5 mcg PO DAILY [facility] Last Admin: 11/08/20 09:06 Dose: 0.5 mcg Documented by: Clonidine HCl (Clonidine 0.1 Mg Tab) 0.3 mg PO TID [facility] Last Admin: 11/08/20 20:07 Dose: 0.3 mg Documented by: Gabapentin (Gabapentin 100 Mg Cap) 100 mg PO BID [facility] Last Admin: 11/08/20 20:07 Dose: 100 mg Documented by: Sodium Chloride (Normal Saline) 1,000 mls @ 75 mls/hr IV ASDIRECTED [facility] Last Admin: 11/08/20 22:37 Dose: 75 mls/hr Documented by: Metronidazole 500 mg/ Premix 100 mls @ 100 mls/hr IV Q6HR [facility] Last Infusion: 11/09/20 06:22 Dose: Infused Documented by: Isosorbide Mononitrate (Isosorbide Mononitrate 60 Mg Tab.Er) 120 mg PO ACBREAKFAST [facility] Last Admin: 11/09/20 05:05 Dose: 120 mg Documented by: Metoclopramide HCl (Metoclopramide 10 Mg/2 Ml Sdv) 10 mg IVPUSH Q6H PRN PRN Reason: Nausea/Vomiting Last Admin: 11/07/20 23:46 Dose: 10 mg Documented by: Non-Formulary Medication (Alendronate [Fosamax]) 70 mg PO .SATURDAY [facility] Ondansetron HCl (Ondansetron 4 Mg/2 Ml Sdv) 4 mg IVPUSH Q4H PRN PRN Reason: Nausea/Vomiting Last Admin: 11/08/20 05:27 Dose: 4 mg Documented by: Pravastatin Sodium (Pravastatin 20 Mg Tab) 40 mg PO BEDTIME [facility] Last Admin: 11/08/20 20:08 Dose: 40 mg Documented by: Promethazine HCl (Promethazine 25 Mg/Ml Sdv) 25 mg IM Q4H PRN PRN Reason: nausea and vomitting Last Admin: 11/07/20 13:15 Dose: 25 mg Documented by: Sodium Chloride (Sodium Chloride 0.9% 10 Ml Syringe) 10 ml FLUSH ASDIRECTED PRN PRN Reason: Keep Vein Open Discontinued Medications Calcium Gluconate (Calcium Gluconate 10% 1 Gm/10 Ml Sdv) 2 gm IVPUSH ONETIME ONE Stop: 11/08/20 07:17 Last Admin: 11/08/20 09:08 Dose: 2 gm Documented by: Calcium Gluconate (Calcium Gluconate 10% 1 Gm/10 Ml Sdv) 2 gm IVPUSH ONETIME ONE Stop: 11/09/20 07:03 Dicyclomine HCl (Dicyclomine 20 Mg/2 Ml Sdv) 20 mg IM ONETIME ONE Stop: 11/07/20 08:13 Last Admin: 11/07/20 08:30 Dose: 20 mg Documented by: Haloperidol Lactate (Haloperidol Lactate 5 Mg/Ml Sdv) 4 mg IM ONETIME ONE Stop: 11/07/20 20:30 Last Admin: 11/07/20 20:57 Dose: 4 mg Documented by: Sodium Chloride (Normal Saline) 1,000 mls @ 999 mls/hr IV .BOLUS ONE Stop: 11/07/20 08:18 Last Admin: 11/07/20 08:01 Dose: 999 mls/hr Documented by: Magnesium Sulfate 2 gm/ Premix 50 mls @ 25 mls/hr IV ONETIME ONE Stop: 11/07/20 14:59 Last Admin: 11/07/20 13:31 Dose: 25 mls/hr Documented by: Lorazepam (Lorazepam 2 Mg/Ml Sdv) 0.5 mg IVPUSH BEDTIME PRN PRN Reason: Anxiety Metoclopramide HCl (Metoclopramide 10 Mg/2 Ml Sdv) 5 mg IVPUSH ONETIME ONE Stop: 11/07/20 05:50 Last Admin: 11/07/20 05:59 Dose: 5 mg Documented by: Ondansetron HCl (Ondansetron 4 Mg/2 Ml Sdv) 4 mg IVPUSH ONETIME ONE Stop: 11/07/20 04:40 Last Admin: 11/07/20 04:55 Dose: 4 mg Documented by: Ondansetron HCl (Ondansetron 4 Mg/2 Ml Sdv) 4 mg IVPUSH ONETIME ONE Stop: 11/07/20 08:16 Last Admin: 11/07/20 08:28 Dose: 4 mg Documented by: Ondansetron HCl (Ondansetron 4 Mg/2 Ml Sdv) 8 mg IVPUSH ONETIME ONE Stop: 11/07/20 17:55 Last Admin: 11/07/20 18:15 Dose: 8 mg Documented by: Pantoprazole Sodium (Pantoprazole 40 Mg Vial) 40 mg IVPUSH ONETIME ONE Stop: 11/07/20 05:51 Last Admin: 11/07/20 06:00 Dose: 40 mg Documented by: Potassium Chloride (Potassium Chloride 10 Meq Tab.Er) 40 meq PO Q1H ERICA Stop: 11/08/20 09:16 Last Admin: 11/08/20 10:53 Dose: 40 meq Documented by: - Exam General: Reports: Alert, Oriented HEENT: Reports: Pupils Equal, Pupils Reactive, EOMI, Mucous Membr. Moist/Silvana Neck: Reports: Supple Lungs: Reports: Clear to Auscultation, Normal Respiratory Effort Cardiovascular: Reports: Regular Rate, Regular Rhythm GI/Abdominal Exam: Normal Bowel Sounds, Soft, Non-Tender, No Organomegaly, No Distention, No Abnormal Bruit, No Mass, Pelvis Stable Back Exam: Reports: Normal Inspection, Full Range of Motion Extremities: Normal Inspection, Normal Range of Motion, Non-Tender, No Pedal Edema, Normal Capillary Refill Skin: Reports: Warm, Dry, Intact Wound/Incisions: Reports: Healing Well Neurological: Reports: No New Focal Deficit Psy/Mental Status: Reports: Alert, Normal Affect, Normal Mood
[2020-11-09] MEDS: Gabapentin 100 MG Cap PO SCH (09:01)
[2020-11-09] MEDS: Calcitriol 0.25 MCG Cap PO SCH (09:01)
[2020-11-09] MEDS: cloNIDine 0.1 MG Tab PO SCH (09:01)
[2020-11-09] MEDS: Atenolol 50 MG Tab PO SCH (09:02)
[2020-11-09] MEDS: amLODIPine 5 MG Tab PO SCH (09:02)
[2020-11-09] MEDS: Aspirin 81 MG Tab.EC PO SCH (09:02)
[2020-11-09 09:03] VITALS: BP 162/72; PULSE 80
== END 2020-11-09 11:05 | disposition home or self-care (01) | DRG 392 ==
LOC: DL.ED 04:27 → DL.MS 09:43
PROVIDERS: ADMIT Internal Medicine; ATTEND Internal Medicine
DX: K52.9 Noninfective gastroenteritis and colitis, unspecified (principal); A09 Infectious gastroenteritis and colitis, unspecified; E87.1 Hypo-osmolality and hyponatremia; K58.9 Irritable bowel syndrome, unspecified; E83.42 Hypomagnesemia; N28.9 Disorder of kidney and ureter, unspecified; K57.90 Diverticulosis of intestine, part unspecified, without perforation or abscess without bleeding; R31.29 Other microscopic hematuria; R11.14 Bilious vomiting; Z88.8 Allergy status to other drugs, medicaments and biological substances; M85.80 Other specified disorders of bone density and structure, unspecified site; I25.10 Atherosclerotic heart disease of native coronary artery without angina pectoris; Z20.822 Contact with and (suspected) exposure to COVID-19; E78.5 Hyperlipidemia, unspecified; I10 Essential (primary) hypertension; N18.9 Chronic kidney disease, unspecified; E87.6 Hypokalemia; E66.9 Obesity, unspecified; M19.90 Unspecified osteoarthritis, unspecified site; F32.9 Major depressive disorder, single episode, unspecified; E55.9 Vitamin D deficiency, unspecified; F41.9 Anxiety disorder, unspecified; E83.51 Hypocalcemia; E78.00 Pure hypercholesterolemia, unspecified; Z90.710 Acquired absence of both cervix and uterus; Z90.49 Acquired absence of other specified parts of digestive tract; Z79.899 Other long term (current) drug therapy; I25.2 Old myocardial infarction; Z79.82 Long term (current) use of aspirin; Z88.5 Allergy status to narcotic agent; Z98.890 Other specified postprocedural states
CPT/HCPCS: 36415; 70450; 74176; 80048; 80053; 81001; 82150; 83605; 83690; 83735; 83880; 84484; 85018; 85025; 85651; 86140; 87046; 93005; 96372; 96374; 96375; 96376; 99222; 99232; 99239; 99284; 99285-25; A9270-GY; C9113; J0500; J0610; J1630; J2405; J2550; J2765; J3475; J3490; J7030; U0002

== ENCOUNTER 2023-04-10 17:43 | Emergency (ER) | payer MEDICARE, BC ==
[2023-04-10] MEDS ORDERED: Metoclopramide 10 MG Tab PO ONE (17:44)
[2023-04-10] MEDS ORDERED: Ondansetron 4 MG/2 ML SDV IVPUSH ONE (18:00)
[2023-04-10] MEDS ORDERED: Lactated Ringers 1,000 ML IV ONE (18:00)
[2023-04-10 18:13] LABS: BASOPHILS PERCENT AUTO 0.2 % (0.0-1.0); EOSINOPHILS PERCENT AUTO 0.1 % (1.0-3.0); HEMATOCRIT 44.2 % (37.0-47.0); HEMOGLOBIN 14.7 g/dL (12.0-16.0); LYMPHOCYTES PERCENT AUTO 7.4 % (20.5-50.1); MEAN CORPUSCULAR HEMOGLOBIN 28.1 pg (27.0-34.0); MEAN CORPUSCULAR HGB CONC 33.3 g/dL (33.0-35.0); MEAN CORPUSCULAR VOLUME 84.5 fL (80-100); MONOCYTES PERCENT AUTO 5.3 % (2-8); PLATELET COUNT,PLT 288 10^3/uL (150-450); RED BLOOD CELL COUNT 5.23 10^6/uL (4.2-5.4)
[2023-04-10 18:24] LABS: A/G RATIO 0.9; ALBUMIN 3.7 g/dL (3.4-5.0); ANION GAP 15.2 mEq/L (7-13); BILIRUBIN TOTAL 0.7 mg/dL (0.2-1.0); BUN/CREATININE RATIO 11.6 (No establ ref range); CALCIUM 8.9 mg/dL (8.5-10.1); CREATININE 1.64 mg/dL (0.55-1.02); EST CRCL DRUG DOSING (CG) 22.02 mL/min; MAGNESIUM 1.6 mg/dL (1.8-2.4); POTASSIUM,K 3.2 mmol/L (3.5-5.1); PROTEIN TOTAL,TP 7.6 g/dL (6.4-8.2)
[2023-04-10 19:32] LABS: LACTIC ACID 1.9 mmol/L (0.4-2.0)
[2023-04-10 20:42] LABS: APPEARANCE,URINE CLEAR (CLEAR); BILIRUBIN,URINE NEGATIVE (NEGATIVE); COLOR,URINE YELLOW (YELLOW); GLUCOSE,URINE NEGATIVE (NEGATIVE); KETONES,URINE NEGATIVE (NEGATIVE); LEUKOCYTE ESTERASE,URINE NEGATIVE (NEGATIVE); NITRITE,URINE NEGATIVE (NEGATIVE); OCCULT BLOOD,URINE TRACE-LYSED (NEGATIVE); PROTEIN,URINE NEGATIVE (NEGATIVE); UROBILINOGEN,URINE 0.2 mg/dL (0.2-1.0)
[2023-04-10 20:48] LABS: AMORPHOUS SEDIMENT,URINE FEW /HPF (NOT SEEN); BACTERIA,URINE FEW /HPF (0-FEW/HPF); EPITHELIAL CELLS,URINE FEW /HPF (NOT SEEN); MUCUS,URINE FEW /LPF (NOT SEEN); WBC,URINE 0-5 /HPF (0-5/HPF)
[2023-04-10 21:14] VITALS: BP 138/67; PULSE 60
[2023-04-10] MEDS ORDERED: Metoclopramide 10 MG Tab ONE (21:14)
== END 2023-04-10 21:25 | disposition home or self-care (01) ==
LOC: DL.ED 17:43
DX: R11.14 Bilious vomiting (principal); N18.32 Chronic kidney disease, stage 3b; R31.21 Asymptomatic microscopic hematuria; I11.0 Hypertensive heart disease with heart failure; E78.00 Pure hypercholesterolemia, unspecified; I50.9 Heart failure, unspecified; M19.90 Unspecified osteoarthritis, unspecified site; Z79.82 Long term (current) use of aspirin; Z88.8 Allergy status to other drugs, medicaments and biological substances; Z88.5 Allergy status to narcotic agent; Z79.899 Other long term (current) drug therapy; Z90.710 Acquired absence of both cervix and uterus
CPT/HCPCS: 36415; 74176; 80053; 81001; 82272; 83605; 83690; 83735; 85025; 96361; 96374; 99284; J2405; J7120

== ENCOUNTER 2023-06-26 12:32 | Observation (INO) | payer MEDICARE, BC ==
[2023-06-26] MEDS ORDERED: Sodium Chloride 0.9% 10 ML Syringe FLUSH PRN (14:07)
[2023-06-26 14:15] LABS: BASOPHILS PERCENT AUTO 0.2 % (0.0-1.0); EOSINOPHILS PERCENT AUTO 1.3 % (1.0-3.0); HEMATOCRIT 39.4 % (37.0-47.0); HEMOGLOBIN 13.3 g/dL (12.0-16.0); LYMPHOCYTES PERCENT AUTO 20.7 % (20.5-50.1); MEAN CORPUSCULAR HEMOGLOBIN 28.3 pg (27.0-34.0); MEAN CORPUSCULAR HGB CONC 33.8 g/dL (33.0-35.0); MEAN CORPUSCULAR VOLUME 83.8 fL (80-100); MONOCYTES PERCENT AUTO 9.8 % (2-8); PLATELET COUNT,PLT 266 10^3/uL (150-450)
[2023-06-26 14:29] LABS: B-TYPE NATRIURETIC PEPTIDE,BNP 107 pg/ml (0-100)
[2023-06-26] MEDS: Sodium Chloride 0.9% 1,000 ML IV ONE (14:37)
[2023-06-26 14:39] LABS: A/G RATIO 1.1; ALANINE AMINOTRANSFERASE,ALT 26 U/L (14-59); ALBUMIN 3.6 g/dL (3.4-5.0); ALKALINE PHOSPHATASE 53 U/L (46-116); ANION GAP 11.8 mEq/L (7-13); ASPARTATE AMNIOTRANSFERASE,AST 25 U/L (15-37); BILIRUBIN TOTAL 0.5 mg/dL (0.2-1.0); BLOOD UREA NITROGEN,BUN 27 mg/dL (7-18); BUN/CREATININE RATIO 12.2 (No establ ref range); CALCIUM 8.7 mg/dL (8.5-10.1); CARBON DIOXIDE,CO2 29 mmol/L (21-32); CHLORIDE,CL 88 mmol/L (98-107); CREATININE 2.21 mg/dL (0.55-1.02); GLUCOSE RANDOM 101 mg/dL (70-99); MAGNESIUM 1.8 mg/dL (1.8-2.4); POTASSIUM,K 3.8 mmol/L (3.5-5.1); PROTEIN TOTAL,TP 6.9 g/dL (6.4-8.2); SODIUM,NA 125 mmol/L (136-145); TSH ULTRASENSITIVE 2.45 uIU/mL (0.36-3.74)
[2023-06-26 14:49] LABS: ESTIMATED GFR 23 mL/min (>=60)
[2023-06-26] MEDS ORDERED: Albuterol/Ipratropium 3.0-0.5 MG/3 ML Neb Soln NEB PRN (17:07)
[2023-06-26] MEDS ORDERED: Polyethylene Glycol 3350 Powder 17 GM Packet PO PRN (17:07)
[2023-06-26] MEDS ORDERED: Sennosides/Docusate Sodium 50-8.6 MG Tab PO PRN (17:07)
[2023-06-26] MEDS ORDERED: Naloxone 2 MG/2 ML Syringe IVPUSH PRN (17:07)
[2023-06-26] MEDS ORDERED: Magnesium Hydroxide 400 MG/5 ML Susp 30 ML Cup PO PRN (17:07)
[2023-06-26] MEDS ORDERED: HYDROmorphone 0.5 MG/0.5 ML Syringe IVPUSH PRN (17:07)
[2023-06-26] MEDS ORDERED: Acetaminophen 325 MG Tab PO PRN (17:07)
[2023-06-26] MEDS ORDERED: Ondansetron 4 MG/2 ML SDV IVPUSH PRN (17:07)
[2023-06-26] MEDS ORDERED: Acetaminophen/HYDROcodone 325-5 MG Tab PO PRN (17:10)
[2023-06-26] MEDS ORDERED: Metoprolol Tartrate 5 MG/5 ML SDV IVPUSH PRN (17:10)
[2023-06-26] MEDS ORDERED: Labetalol 20 MG/4 ML Syringe IVPUSH PRN (17:11)
[2023-06-26] MEDS: Sodium Chloride 0.9% 1,000 ML IV SCH (18:50)
[2023-06-26] MEDS: Fludrocortisone 0.1 MG Tab PO SCH (21:11)
[2023-06-27 06:19] LABS: BASOPHILS PERCENT AUTO 0.5 % (0.0-1.0); EOSINOPHILS PERCENT AUTO 2.1 % (1.0-3.0); HEMATOCRIT 40.6 % (37.0-47.0); HEMOGLOBIN 13.5 g/dL (12.0-16.0); LYMPHOCYTES PERCENT AUTO 34.4 % (20.5-50.1); MEAN CORPUSCULAR HEMOGLOBIN 28.3 pg (27.0-34.0); MEAN CORPUSCULAR HGB CONC 33.3 g/dL (33.0-35.0); MEAN CORPUSCULAR VOLUME 85.1 fL (80-100); MONOCYTES PERCENT AUTO 9.7 % (2-8); NEUTROPHILS PERCENT AUTO 53.3 % (42.2-75.2); PLATELET COUNT,PLT 271 10^3/uL (150-450); RED BLOOD CELL COUNT 4.77 10^6/uL (4.2-5.4); WHITE BLOOD CELL COUNT,WBC 7.7 10^3/uL (5.0-10.0)
[2023-06-27 06:38] LABS: A/G RATIO 1.1; ALBUMIN 3.5 g/dL (3.4-5.0); ANION GAP 11.9 mEq/L (7-13); BILIRUBIN TOTAL 0.6 mg/dL (0.2-1.0); BUN/CREATININE RATIO 13.2 (No establ ref range); CALCIUM 8.7 mg/dL (8.5-10.1); CREATININE 1.82 mg/dL (0.55-1.02); EST CRCL DRUG DOSING (CG) 19.84 mL/min; MAGNESIUM 1.7 mg/dL (1.8-2.4); POTASSIUM,K 3.9 mmol/L (3.5-5.1); PROTEIN TOTAL,TP 6.8 g/dL (6.4-8.2)
[2023-06-27] MEDS: amLODIPine 5 MG Tab PO SCH (08:31)
[2023-06-27 12:10] VITALS: PULSE 63
[2023-06-27] MEDS: cloNIDine 0.1 MG Tab PO ONE (13:09)
[2023-06-27] MEDS: Furosemide 20 MG/2 ML VIAL IVPUSH ONE (13:10)
[2023-06-27 13:11] VITALS: BP 176/77
== END 2023-06-27 15:45 | disposition home or self-care (01) ==
LOC: DL.ED 12:32 → DL.MS 15:55 → DL.ED 16:18 → DL.MS 17:11
PROVIDERS: ADMIT Internal Medicine; ATTEND Internal Medicine
DX: I95.1 Orthostatic hypotension (principal); I44.0 Atrioventricular block, first degree; I49.5 Sick sinus syndrome; I12.9 Hypertensive chronic kidney disease with stage 1 through stage 4 chronic kidney disease, or unspecified chronic kidney disease; N18.30 Chronic kidney disease, stage 3 unspecified; E78.00 Pure hypercholesterolemia, unspecified; Z79.82 Long term (current) use of aspirin; Z79.899 Other long term (current) drug therapy
CPT/HCPCS: 36415; 70450; 70551; 71045; 80053; 83735; 83880; 84443; 84484; 85025; 93005; 93010; 93880; 96360; 96361; 96374; 97165-GO; 99223; 99238; 99284; 99285-25; A9270-GY; G0378; J1940; J7030

== ENCOUNTER 2024-08-17 04:39 | Inpatient (IN) | payer MEDICARE, BC ==
[2024-08-17] MEDS: Ketorolac 30 MG/ML SDV IVPUSH ONE (04:31)
[2024-08-17] MEDS ORDERED: Naloxone 2 MG/2 ML Syringe IVPUSH PRN (04:40)
[2024-08-17 04:45] LABS: BASOPHILS PERCENT AUTO 0.2 % (0.0-1.0); EOSINOPHILS PERCENT AUTO 0.6 % (1.0-3.0); HEMOGLOBIN 13.9 g/dL (12.0-16.0); MEAN CORPUSCULAR HEMOGLOBIN 28.9 pg (27.0-34.0); MEAN CORPUSCULAR HGB CONC 33.9 g/dL (33.0-35.0); MEAN CORPUSCULAR VOLUME 85.2 fL (80-100); MONOCYTES PERCENT AUTO 6.9 % (2-8); NEUTROPHILS PERCENT AUTO 75.3 % (42.2-75.2); PLATELET COUNT,PLT 266 10^3/uL (150-450); RED BLOOD CELL COUNT 4.81 10^6/uL (4.2-5.4); WHITE BLOOD CELL COUNT,WBC 8.4 10^3/uL (5.0-10.0)
[2024-08-17] MEDS: fentaNYL 100 MCG/2 ML SDV IVPUSH ONE (04:45)
[2024-08-17] MEDS: fentaNYL 100 MCG/2 ML SDV ONE (04:46)
[2024-08-17 04:58] LABS: ALBUMIN 4.1 g/dL (3.4-5.0); BILIRUBIN TOTAL 0.6 mg/dL (0.2-1.0); BUN/CREATININE RATIO 15.3 (No establ ref range); CALCIUM 9.6 mg/dL (8.5-10.1); CREATININE 1.57 mg/dL (0.55-1.02); EST CRCL DRUG DOSING (CG) 22.28 mL/min; PROTEIN TOTAL,TP 8.1 g/dL (6.4-8.2)
[2024-08-17 07:16] LABS: INR 2.9 (0.9-1.2); PROTHROMBIN TIME 28.4 SEC (9.0-12.0)
[2024-08-17] MEDS: Morphine 2 MG/ML SYRINGE IVPUSH ONE (07:46)
[2024-08-17] MEDS: Ondansetron 4 MG/2 ML SDV IVPUSH ONE (07:46)
[2024-08-17] MEDS ORDERED: Polyethylene Glycol 3350 Powder 17 GM Packet PO PRN (11:37)
[2024-08-17] MEDS ORDERED: Ondansetron 4 MG/2 ML SDV IVPUSH PRN (11:37)
[2024-08-17] MEDS ORDERED: Sennosides/Docusate Sodium 50-8.6 MG Tab PO PRN (11:37)
[2024-08-17] MEDS ORDERED: Albuterol/Ipratropium 3.0-0.5 MG/3 ML Neb Soln NEB PRN (11:37)
[2024-08-17] MEDS ORDERED: Magnesium Hydroxide 400 MG/5 ML Susp 30 ML Cup PO PRN (11:37)
[2024-08-17] MEDS ORDERED: fentaNYL 100 MCG/2 ML SDV IVPUSH PRN (11:56)
[2024-08-17] MEDS ORDERED: ALENDRONATE 70 MG PO SCH (12:00)
[2024-08-17] MEDS: oxyCODONE ER 20 MG TAB.ER PO ONE (13:51)
[2024-08-17] MEDS: Lidocaine 5% 700 MG Patch TOP SCH (13:52)
[2024-08-17] MEDS: Gabapentin 100 MG Cap PO ONE (13:52)
[2024-08-17] MEDS: Calcitriol 0.25 MCG Cap PO SCH (13:56)
[2024-08-17] MEDS: oxyCODONE ER 10 MG TAB.ER PO SCH (21:07)
[2024-08-17] MEDS: cloNIDine 0.1 MG Tab PO SCH (21:08)
[2024-08-17] MEDS: Gabapentin 100 MG Cap PO SCH (21:08)
[2024-08-17] MEDS: Melatonin 3 MG Tab PO PRN (21:08)
[2024-08-17] MEDS ORDERED: Midodrine 5 MG Tab PO PRN (22:55)
[2024-08-18] MEDS: Sodium Chloride 0.9% 500 ML IV SCH (00:45)
[2024-08-18] MEDS: Sodium Chloride 0.9% 1,000 ML IV SCH ×2 (03:00→20:52)
[2024-08-18 06:56] LABS: BASOPHILS PERCENT AUTO 0.2 % (0.0-1.0); EOSINOPHILS PERCENT AUTO 1.5 % (1.0-3.0); HEMOGLOBIN 12.2 g/dL (12.0-16.0); LYMPHOCYTES PERCENT AUTO 16.1 % (20.5-50.1); MEAN CORPUSCULAR HGB CONC 32.1 g/dL (33.0-35.0); MEAN CORPUSCULAR VOLUME 90.3 fL (80-100); MONOCYTES PERCENT AUTO 9.7 % (2-8); NEUTROPHILS PERCENT AUTO 72.5 % (42.2-75.2); PLATELET COUNT,PLT 241 10^3/uL (150-450); RED BLOOD CELL COUNT 4.21 10^6/uL (4.2-5.4); WHITE BLOOD CELL COUNT,WBC 10.4 10^3/uL (5.0-10.0)
[2024-08-18 07:15] LABS: INR 2.8 (0.9-1.2); PROTHROMBIN TIME 27.3 SEC (9.0-12.0)
[2024-08-18 07:17] LABS: ALBUMIN 3.5 g/dL (3.4-5.0); ANION GAP 12.4 mEq/L (7-13); BILIRUBIN TOTAL 0.5 mg/dL (0.2-1.0); BUN/CREATININE RATIO 11.1 (No establ ref range); CALCIUM 8.9 mg/dL (8.5-10.1); CREATININE 3.8 mg/dL (0.55-1.02); EST CRCL DRUG DOSING (CG) 9.21 mL/min; POTASSIUM,K 4.4 mmol/L (3.5-5.1); PROTEIN TOTAL,TP 6.9 g/dL (6.4-8.2)
[2024-08-18] MEDS: Citalopram 20 MG Tab PO SCH (08:42)
[2024-08-18] MEDS: cloNIDine 0.1 MG Tab PO SCH (20:50)
[2024-08-19 06:39] LABS: BASOPHILS PERCENT AUTO 0.1 % (0.0-1.0); EOSINOPHILS PERCENT AUTO 1.6 % (1.0-3.0); HEMATOCRIT 33.2 % (37.0-47.0); HEMOGLOBIN 10.8 g/dL (12.0-16.0); LYMPHOCYTES PERCENT AUTO 16.3 % (20.5-50.1); MEAN CORPUSCULAR HEMOGLOBIN 28.9 pg (27.0-34.0); MEAN CORPUSCULAR HGB CONC 32.5 g/dL (33.0-35.0); MEAN CORPUSCULAR VOLUME 88.8 fL (80-100); MONOCYTES PERCENT AUTO 9.3 % (2-8); NEUTROPHILS PERCENT AUTO 72.7 % (42.2-75.2); PLATELET COUNT,PLT 216 10^3/uL (150-450); RED BLOOD CELL COUNT 3.74 10^6/uL (4.2-5.4); WHITE BLOOD CELL COUNT,WBC 9.7 10^3/uL (5.0-10.0)
[2024-08-19 06:53] LABS: INR 2.7 (0.9-1.2); PROTHROMBIN TIME 26.7 SEC (9.0-12.0)
[2024-08-19 07:02] LABS: ALBUMIN 2.9 g/dL (3.4-5.0); BILIRUBIN TOTAL 0.7 mg/dL (0.2-1.0); BUN/CREATININE RATIO 14.3 (No establ ref range); CALCIUM 8.3 mg/dL (8.5-10.1); CREATININE 2.73 mg/dL (0.55-1.02); EST CRCL DRUG DOSING (CG) 12.82 mL/min; MAGNESIUM 1.6 mg/dL (1.8-2.4); POTASSIUM,K 4.6 mmol/L (3.5-5.1)
[2024-08-19 07:09] LABS: A/G RATIO 0.94; ANION GAP 12.6 mEq/L (7-13)
[2024-08-19 09:40] LABS: APPEARANCE,URINE CLEAR (CLEAR); BILIRUBIN,URINE NEGATIVE (NEGATIVE); COLOR,URINE YELLOW (YELLOW); GLUCOSE,URINE 100 (NEGATIVE); KETONES,URINE NEGATIVE (NEGATIVE); LEUKOCYTE ESTERASE,URINE NEGATIVE (NEGATIVE); NITRITE,URINE NEGATIVE (NEGATIVE); OCCULT BLOOD,URINE TRACE-INTACT (NEGATIVE); PROTEIN,URINE TRACE (NEGATIVE); UROBILINOGEN,URINE 0.2 mg/dL (0.2-1.0)
[2024-08-19 10:06] LABS: AMORPHOUS SEDIMENT,URINE FEW /HPF (NOT SEEN); BACTERIA,URINE FEW /HPF (0-FEW/HPF); EPITHELIAL CELLS,URINE FEW /HPF (NOT SEEN); GRANULAR CASTS,URINE RARE; RBC,URINE 0-5 /HPF (0-5); WBC,URINE 0-5 /HPF (0-5/HPF)
[2024-08-19] MEDS: Gabapentin 100 MG Cap PO SCH (10:17)
[2024-08-19] MEDS: Acetaminophen 325 MG Tab PO PRN (13:09)
[2024-08-19] MEDS ORDERED: Acetaminophen/HYDROcodone 325-5 MG Tab PO PRN (18:14)
[2024-08-19] MEDS: Midodrine 5 MG Tab PO ONE (21:57)
[2024-08-20] MEDS: cloNIDine 0.1 MG Tab PO ONE ×2 (06:21→09:59)
[2024-08-20 06:22] LABS: BASOPHILS PERCENT AUTO 0.3 % (0.0-1.0); EOSINOPHILS PERCENT AUTO 3.9 % (1.0-3.0); HEMATOCRIT 31.2 % (37.0-47.0); HEMOGLOBIN 10.1 g/dL (12.0-16.0); LYMPHOCYTES PERCENT AUTO 17.5 % (20.5-50.1); MEAN CORPUSCULAR HEMOGLOBIN 28.6 pg (27.0-34.0); MEAN CORPUSCULAR HGB CONC 32.4 g/dL (33.0-35.0); MEAN CORPUSCULAR VOLUME 88.4 fL (80-100); MONOCYTES PERCENT AUTO 11.7 % (2-8); NEUTROPHILS PERCENT AUTO 66.6 % (42.2-75.2); PLATELET COUNT,PLT 207 10^3/uL (150-450); RED BLOOD CELL COUNT 3.53 10^6/uL (4.2-5.4); WHITE BLOOD CELL COUNT,WBC 7.4 10^3/uL (5.0-10.0)
[2024-08-20 06:38] LABS: INR 1.7 (0.9-1.2); PROTHROMBIN TIME 16.8 SEC (9.0-12.0)
[2024-08-20 06:42] LABS: ALBUMIN 2.7 g/dL (3.4-5.0); BILIRUBIN TOTAL 0.5 mg/dL (0.2-1.0); BUN/CREATININE RATIO 15.9 (No establ ref range); CREATININE 2.45 mg/dL (0.55-1.02); EST CRCL DRUG DOSING (CG) 14.28 mL/min; MAGNESIUM 1.7 mg/dL (1.8-2.4)
[2024-08-20 06:52] LABS: ANION GAP 10.3 mEq/L (7-13); POTASSIUM,K 4.3 mmol/L (3.5-5.1)
[2024-08-20 06:53] LABS: A/G RATIO 0.82
[2024-08-20] MEDS: Sodium Chloride 0.9% 10 ML Syringe FLUSH PRN (08:43)
[2024-08-20 16:41] VITALS: BP 167/95; PULSE 67
[2024-08-20] MEDS ORDERED: Midodrine 5 MG Tab PO ONE (17:37)
[2024-08-20] MEDS ORDERED: Magnesium Sulfate 2 GM/50 mL 2 GM in Premix Bag 1 BAG IV ONE (18:48)
== END 2024-08-20 17:38 | disposition swing bed (61) | DRG 554 ==
LOC: DL.ED 04:39 → DL.MS 11:07
PROVIDERS: ADMIT Internal Medicine; ATTEND Internal Medicine
DX: M25.061 Hemarthrosis, right knee (principal); I10 Essential (primary) hypertension; E87.1 Hypo-osmolality and hyponatremia; Z88.5 Allergy status to narcotic agent; N17.9 Acute kidney failure, unspecified; H26.9 Unspecified cataract; E78.00 Pure hypercholesterolemia, unspecified; K52.3 Indeterminate colitis; N18.9 Chronic kidney disease, unspecified; I12.9 Hypertensive chronic kidney disease with stage 1 through stage 4 chronic kidney disease, or unspecified chronic kidney disease; F32.A Depression, unspecified; E55.9 Vitamin D deficiency, unspecified; N18.30 Chronic kidney disease, stage 3 unspecified; D63.8 Anemia in other chronic diseases classified elsewhere; M81.0 Age-related osteoporosis without current pathological fracture; F41.9 Anxiety disorder, unspecified; M17.11 Unilateral primary osteoarthritis, right knee; I48.0 Paroxysmal atrial fibrillation; Z88.8 Allergy status to other drugs, medicaments and biological substances; Z79.899 Other long term (current) drug therapy; Z79.01 Long term (current) use of anticoagulants; Z98.890 Other specified postprocedural states; Z90.710 Acquired absence of both cervix and uterus; Z95.0 Presence of cardiac pacemaker
CPT/HCPCS: 36415; 73560-RT; 73700-RT; 76770; 80053; 81001; 82306; 82550; 83735; 85025; 85610; 96374; 96375; 97110-GO; 97110-GP; 97116-GP; 97161-GP; 97165-GO; 97530-GO; 99284; 99285-25; A9270-GY; J1885; J2270; J2405; J3010; J7030; J7040

== ENCOUNTER 2024-08-20 15:24 | Inpatient (IN) | payer MEDICARE, BC ==
[2024-08-20] MEDS ORDERED: Naloxone 2 MG/2 ML Syringe IVPUSH PRN (17:26)
[2024-08-20] MEDS ORDERED: Sodium Chloride 0.9% 10 ML Syringe FLUSH PRN ×2 (17:26)
[2024-08-20] MEDS ORDERED: Magnesium Hydroxide 400 MG/5 ML Susp 30 ML Cup PO PRN (17:26)
[2024-08-20] MEDS ORDERED: Acetaminophen 325 MG Tab PO PRN (17:26)
[2024-08-20] MEDS ORDERED: Albuterol/Ipratropium 3.0-0.5 MG/3 ML Neb Soln NEB PRN (17:26)
[2024-08-20] MEDS ORDERED: Ondansetron 4 MG/2 ML SDV IVPUSH PRN (17:26)
[2024-08-20] MEDS ORDERED: Polyethylene Glycol 3350 Powder 17 GM Packet PO PRN (17:26)
[2024-08-20] MEDS ORDERED: Sennosides/Docusate Sodium 50-8.6 MG Tab PO PRN (17:26)
[2024-08-20] MEDS: Sodium Chloride 0.9% 10 ML Syringe FLUSH SCH (21:00)
[2024-08-20] MEDS: Check Patch TRDERM SCH (21:04)
[2024-08-20] MEDS: Acetaminophen/HYDROcodone 325-5 MG Tab PO PRN (21:05)
[2024-08-21 07:07] LABS: INR 1.1 (0.9-1.2); PROTHROMBIN TIME 11.5 SEC (9.0-12.0)
[2024-08-21] MEDS: Calcitriol 0.25 MCG Cap PO SCH (09:35)
[2024-08-21] MEDS: Citalopram 20 MG Tab PO SCH (09:36)
[2024-08-21] MEDS: Gabapentin 100 MG Cap PO SCH (09:36)
[2024-08-21] MEDS: Lidocaine 5% 700 MG Patch TOP SCH (09:37)
[2024-08-21] MEDS: cloNIDine 0.1 MG Tab PO SCH (10:05)
[2024-08-21] MEDS: Lidocaine 1% with EPINEPHrine 1:100,000 20 ML MDV INJECT ONE (19:21)
[2024-08-21] MEDS: Lactulose Soln 10 GM/15 ML 30 ML UD Cup PO ONE (20:22)
[2024-08-21] MEDS: Psyllium Husk Powder (4 in 1) 3.4 GM Packet PO SCH (20:26)
[2024-08-22 06:36] LABS: BASOPHILS PERCENT AUTO 0.3 % (0.0-1.0); EOSINOPHILS PERCENT AUTO 2.6 % (1.0-3.0); HEMATOCRIT 34.3 % (37.0-47.0); HEMOGLOBIN 11.6 g/dL (12.0-16.0); LYMPHOCYTES PERCENT AUTO 25.1 % (20.5-50.1); MEAN CORPUSCULAR HEMOGLOBIN 29.4 pg (27.0-34.0); MEAN CORPUSCULAR HGB CONC 33.8 g/dL (33.0-35.0); MEAN CORPUSCULAR VOLUME 86.8 fL (80-100); MONOCYTES PERCENT AUTO 14.5 % (2-8); NEUTROPHILS PERCENT AUTO 57.5 % (42.2-75.2); PLATELET COUNT,PLT 263 10^3/uL (150-450); RED BLOOD CELL COUNT 3.95 10^6/uL (4.2-5.4); WHITE BLOOD CELL COUNT,WBC 7.7 10^3/uL (5.0-10.0)
[2024-08-22 06:51] LABS: ANION GAP 12.7 mEq/L (7-13); CALCIUM 9.7 mg/dL (8.5-10.1); CREATININE 1.41 mg/dL (0.55-1.02); EST CRCL DRUG DOSING (CG) 24.81 mL/min; POTASSIUM,K 3.7 mmol/L (3.5-5.1)
[2024-08-22] MEDS: Warfarin 2 MG Tab PO SCH (14:52)
[2024-08-23 07:10] LABS: PROTHROMBIN TIME 10.4 SEC (9.0-12.0)
[2024-08-24 07:18] LABS: BASOPHILS PERCENT AUTO 0.2 % (0.0-1.0); EOSINOPHILS PERCENT AUTO 3.4 % (1.0-3.0); HEMATOCRIT 33.6 % (37.0-47.0); HEMOGLOBIN 11.3 g/dL (12.0-16.0); MEAN CORPUSCULAR HEMOGLOBIN 29.5 pg (27.0-34.0); MEAN CORPUSCULAR HGB CONC 33.6 g/dL (33.0-35.0); MEAN CORPUSCULAR VOLUME 87.7 fL (80-100); MONOCYTES PERCENT AUTO 12.3 % (2-8); NEUTROPHILS PERCENT AUTO 59.1 % (42.2-75.2); PLATELET COUNT,PLT 296 10^3/uL (150-450); RED BLOOD CELL COUNT 3.83 10^6/uL (4.2-5.4); WHITE BLOOD CELL COUNT,WBC 6.3 10^3/uL (5.0-10.0)
[2024-08-24 07:33] LABS: INR 0.9 (0.9-1.2); PROTHROMBIN TIME 9.7 SEC (9.0-12.0)
[2024-08-24] MEDS ORDERED: Citalopram 20 MG Tab PO SCH (11:00)
[2024-08-24] MEDS: cloNIDine 0.1 MG Tab PO SCH (11:29)
[2024-08-25 06:46] LABS: PROTHROMBIN TIME 10.6 SEC (9.0-12.0)
[2024-08-25 07:49] VITALS: BP 173/83; PULSE 73
== END 2024-08-25 14:30 | disposition home or self-care (01) | DRG 554 ==
LOC: DL.MS 17:28
PROVIDERS: ADMIT Internal Medicine; ATTEND Internal Medicine
PROC: 0S9C3ZZ Drainage of Right Knee Joint, Percutaneous Approach (ICD-10-PCS; principal; 2024-08-20)
DX: M25.061 Hemarthrosis, right knee (principal); N17.9 Acute kidney failure, unspecified; E87.1 Hypo-osmolality and hyponatremia; D68.32 Hemorrhagic disorder due to extrinsic circulating anticoagulants; R53.81 Other malaise; H26.9 Unspecified cataract; I48.91 Unspecified atrial fibrillation; E78.00 Pure hypercholesterolemia, unspecified; M19.90 Unspecified osteoarthritis, unspecified site; F32.A Depression, unspecified; E55.9 Vitamin D deficiency, unspecified; I12.9 Hypertensive chronic kidney disease with stage 1 through stage 4 chronic kidney disease, or unspecified chronic kidney disease; N18.30 Chronic kidney disease, stage 3 unspecified; M81.0 Age-related osteoporosis without current pathological fracture; T45.515A Adverse effect of anticoagulants, initial encounter; F41.9 Anxiety disorder, unspecified; I70.1 Atherosclerosis of renal artery; D63.8 Anemia in other chronic diseases classified elsewhere; Z79.01 Long term (current) use of anticoagulants; Z88.8 Allergy status to other drugs, medicaments and biological substances; Z95.0 Presence of cardiac pacemaker; Z90.710 Acquired absence of both cervix and uterus; Z90.49 Acquired absence of other specified parts of digestive tract; Z79.899 Other long term (current) drug therapy; Z98.890 Other specified postprocedural states
CPT/HCPCS: 36415; 80048; 85025; 85610; 97110-GO; 97162-GP; 97165-GO; 97530-GO; 97530-GP; 99305; 99309; 99316; A9270-GY; J2004